=== PATIENT | male | born 1940 | race African-American/Black ===

== ENCOUNTER 2016-09-11 10:56 | Outpatient (RCR) | payer MEDICARE, OTHER | END 2016-09-18 | disposition home or self-care (01) | LOC: WCC 10:56 | DX: L89.314 Pressure ulcer of right buttock, stage 4 (principal); G82.21 Paraplegia, complete; Z87.891 Personal history of nicotine dependence; I10 Essential (primary) hypertension; E11.9 Type 2 diabetes mellitus without complications; M19.90 Unspecified osteoarthritis, unspecified site | CPT/HCPCS: 11044 ==

== ENCOUNTER 2016-10-09 10:23 | Outpatient (RCR) | payer MEDICARE, OTHER | END 2016-10-19 | disposition home or self-care (01) | LOC: WCC 10:23 | DX: L89.314 Pressure ulcer of right buttock, stage 4 (principal); G82.21 Paraplegia, complete; M19.90 Unspecified osteoarthritis, unspecified site; E11.9 Type 2 diabetes mellitus without complications; I10 Essential (primary) hypertension | CPT/HCPCS: 11043 ==

== ENCOUNTER 2016-10-09 11:16 | Outpatient (CLI) | payer MEDICARE, OTHER ==
[2016-10-09 11:44] LABS: BASOPHILS % (AUTO) 0.5 % (0.0-2.0); EOSINOPHILS % (AUTO) 3.2 % (0.0-3.0); MEAN CORPUSCULAR HEMOGLOBIN 26.1 PG (27.0-31.0); MEAN CORPUSCULAR HGB CONC 30.5 G/DL (32.0-36.0); MEAN CORPUSCULAR VOLUME 85 FL (80-99); MEAN PLATELET VOLUME 6.9 FL (6.5-10.1); MONOCYTES % (AUTO) 5.1 % (1.0-10.0); NEUTROPHILS % (AUTO) 77.2 % (45.0-75.0); PLATELET COUNT 203 K/UL (150-450); RED BLOOD COUNT 4.68 M/UL (4.70-6.10); RED CELL DISTRIBUTION WIDTH 17.1 % (11.6-14.8); WHITE BLOOD COUNT 5.3 K/UL (4.8-10.8)
[2016-10-09 11:53] LABS: INR 1.1 (0.9-1.1); PROTHROMBIN TIME 11.5 SEC (9.30-11.50)
[2016-10-09 11:59] LABS: ALANINE AMINOTRANSFERASE 10 U/L (3-41); ALBUMIN/GLOBULIN RATIO 0.8 (1.0-2.7); ANION GAP 8 (5-15); ASPARTATE AMINO TRANSFERASE 13 U/L (5-40); CALCIUM 8.4 mg/dL (8.6-10.2); CARBON DIOXIDE 27 mEQ/L (20-30); CHLORIDE 108 mEQ/L (98-107); HEMOLYSIS 0; POTASSIUM 4.1 mEQ/L (3.4-4.9); SODIUM 143 mEQ/L (135-145); TOTAL PROTEIN 7.2 g/dL (6.6-8.7)
== END 2016-10-09 13:16 | disposition home or self-care (01) ==
LOC: LAB 11:16
DX: R05 Cough (principal); E46 Unspecified protein-calorie malnutrition
CPT/HCPCS: 11043; 36415; 71020; 80053; 84134; 85025; 85610; 85730

== ENCOUNTER 2016-10-09 11:21 | Outpatient (CLI) | payer MEDICARE, OTHER ==
--- NOTE | 2016-10-09 14:45 | Diagnostic Imaging Report ---
Indication: Cough Comparison: None 2 views of the chest obtained. Findings: Cardiomediastinal silhouette and pulmonary vascularity are within normal limits for age. The diaphragmatic contour is smooth and costophrenic angles are sharp. No pleural effusions are identified. There is some mild left basal atelectasis versus scarring. The bones are unremarkable. Impression: No acute disease
== END 2016-10-09 13:21 | disposition home or self-care (01) ==
LOC: RAD 11:21
DX: R05 Cough (principal); E46 Unspecified protein-calorie malnutrition
CPT/HCPCS: 71020

== ENCOUNTER 2016-11-28 09:19 | Inpatient (IN) | payer MEDICARE, OTHER ==
[~2016-11-28] VITALS: Ht 190.5 cm; Wt 76.2 kg
[2016-11-28] VITALS (7 sets, daily range): BP systolic 113–147; BP diastolic 54–81
[2016-11-28] MEDS ORDERED: Bacitracin 50000 Units Vial ONE ×2 (10:25→14:03)
[2016-11-28] MEDS ORDERED: NeoSporin Gu Irrig 1ml Amp IRRIG ONE ×2 (10:25→14:03)
[2016-11-28] MEDS ORDERED: Lidocaine 0.5% Epi 50 mL Vial ONE (10:25)
[2016-11-28] MEDS ORDERED: INDAPAMIDE2.5 MG ORAL (10:26)
[2016-11-28] MEDS ORDERED: ASPIR 8181 MG ORAL (10:26)
[2016-11-28] MEDS ORDERED: LOVASTATIN20 MG ORAL (10:26)
[2016-11-28] MEDS ORDERED: ATENOLOL25 MG ORAL (10:26)
[2016-11-28] MEDS ORDERED: ACTOS45 MG ORAL (10:26)
[2016-11-28] MEDS ORDERED: BENAZEPRIL HCL40 MG ORAL (10:26)
[2016-11-28] MEDS ORDERED: GABAPENTIN300 MG ORAL (10:28)
[2016-11-28] MEDS ORDERED: FERROUS SULFAT325 MG ORAL (10:28)
[2016-11-28] MEDS ORDERED: FOLIC ACID1 MG ORAL (10:28)
[2016-11-28] MEDS ORDERED: NEXIUM40 MG ORAL (10:28)
[2016-11-28] MEDS ORDERED: ACETAMINOPHEN-1 EAC1 ORAL (10:28)
--- NOTE | 2016-11-28 12:44 | Pre-Procedure Note/Attestation ---
Pre-Procedure Note/Attestation Complete Prior to Procedure Planned Procedure: right Procedure Narrative: Resection of right ischial ulcer, ostectomy, with flap closure. 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 Attestation I attest that I discussed the nature of the procedure; its benefits; risks and complications; and alternatives (and the risks and benefits of such alternatives ), prior to the procedure, with the patient (or the patient's legal patient admitting representative). I attest that, if there was a reasonable possibility of needing a blood transfusion, the patient (or the patient's legal patient admitting representative) was given the [facility] standardized written summary, pursuant to the Richard Portal Blood Safety Act ([place] Health and Safety Code # 1645, as amended). I attest that I re-evaluated the patient just prior to the surgery and that there has been no change in the patient's H&P, except as documented below: SOURAV PALMER Nov 28, 2016 12:44
[2016-11-28] MEDS ORDERED: ProvayBlue 5mg/ml 10ml amp INJ ONE (13:30)
--- NOTE | 2016-11-28 13:40 | Anethesia Preoperative Eval ---
Anesthesia Pre-op PMH/ROS General Date of Evaluation: Nov 28, 2016 Time of Evaluation: 12:30 Anesthesiologist: Jewels ASA Score: ASA 2 Mallampati Score Class I : Soft palate, uvula, fauces, pillars visible Class II: Soft palate, uvula, fauces visible Class III: Soft palate, base of uvula visible Class IV: Only hard plate visible Mallampati Classification: Class II Surgeon: Elly Diagnosis: Iscial Ulcer Surgical Procedure: Debridementand Flap Closure Anesthesia History: none Family History: no anesthesia problems Allergies: Coded Allergies: SIMVASTATIN (Verified Adverse Reaction, Severe, MUSCLE WEAKNESS, 11/27/16) Medications: see eMAR Past Medical History Cardiovascular: Reports: HTN Pulmonary: Reports: COPD Anesthesia Pre-op Phys. Exam Physician Exam Last Vital Signs Date Time Temp Pulse Resp B/P (MAP) Pulse Ox O2 Delivery O2 Flow Rate FiO2 11/28/16 10:13 98.1 61 18 125/71 100 Room Air Constitutional: NAD Neurologic: CN 2-12 intact Cardiovascular: RRR Respiratory: CTA Gastrointestinal: S/NT/ND Airway Exam Mallampati Score: Class II MO: full ROM: full Teeth: intact, other Dentures: upper, lower Anesthesia Pre-op A/P Studies Pre-op Studies: CXR Risk Assessment & Plan Plan: GA Status Change Before Surgery: No Pre-Antibiotics Given Within 1 Hr of Incision: Yes Evelio Donis M.D. Nov 28, 2016 13:40
--- NOTE | 2016-11-28 13:42 | 48 Hour Post Anesthesia Eval ---
Post Anesthesia Evaluation Procedure: Debridement and Flap Closure Date of Evaluation: Nov 30, 2016 Time of Evaluation: 12:00 Blood Pressure Systolic: 131 0: 83 Pulse Rate: 81 Respiratory Rate: 16 Temperature (Fahrenheit): 97 O2 Sat by Pulse Oximetry: 99 Airway: patent Nausea: No Vomiting: No Hydration Status: adequate Mental Status/LOC: patient returned to baseline Follow-up care needed: ready to discharge Evelio Donis M.D. Nov 28, 2016 13:42
[2016-11-28] MEDS ORDERED: LR 1000ml 1,000 ML IVLG SCH (13:43)
--- NOTE | 2016-11-28 13:43 | Immediate Post-Op Evaluation ---
Immediate Post-Op Evalulation Immediate Post-Op Evalulation Procedure: Debridement and Flap Closure Date of Evaluation: Nov 28, 2016 Time of Evaluation: 16:30 IV Fluids: 1000 Blood Products: 0 Estimated Blood Loss: 30 Urinary Output: 0 Blood Pressure Systolic: 131 Blood Pressure Diastolic: 83 Pulse Rate: 99 Respiratory Rate: 18 O2 Sat by Pulse Oximetry: 99 Temperature (Fahrenheit): 98 Pain Score (1-10): 0 Nausea: No Vomiting: No Patient Status: awake, reacts, patent Hydration Status: adequate Given Within 1 Hr of Incision: Yes Time Given: 13:00 Evelio Donis M.D. Nov 28, 2016 13:43
[2016-11-28] MEDS ORDERED: Metoclopramide 10mg/2ml Inj IVP PRN (13:45)
[2016-11-28] MEDS ORDERED: DiphenhydrAMINE 50mg/ml Inj IVP PRN (13:45)
[2016-11-28] MEDS ORDERED: Ketorolac 30mg Inj IV PRN (13:45)
[2016-11-28] MEDS ORDERED: fentaNYL 100 mcg/2 mL IV PRN (13:45)
[2016-11-28] MEDS ORDERED: Hydromorphone 0.5mg/0.5ml inj IVP PRN (13:45)
[2016-11-28] MEDS ORDERED: Acetaminophen (Non formulary) 100 ML IV ONE (14:30)
--- NOTE | 2016-11-28 17:11 | Brief Operative Note ---
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 Procedure: Resection right ischial ulcer, ostectomy, closure with posterior thigh and right gluteal myocutaneous flaps. Post-op Diagnosis: same as pre-op Surgeon: Elly Anesthesiologist: Jewels Anesthesia: general Specimen: yes Complications: none Condition: stable Fluids: IVF Estimated Blood Loss: minimal Drains: NINA Implant(s) used?: No SOURAV PALMER Nov 28, 2016 17:11
[2016-11-28] MEDS ORDERED: LORazepam Inj 2mg/ml 1ml IV PRN (18:30)
[2016-11-28] MEDS ORDERED: Mylanta II UD 30ml ORAL PRN (18:30)
[2016-11-28] MEDS ORDERED: Miralax 17gm pkt ORAL PRN (18:30)
[2016-11-28] MEDS ORDERED: Zolpidem 5mg tab ORAL PRN (18:30)
[2016-11-28] MEDS: NovoLOG Insulin Flexpen SUBQ SCH (22:31)
[2016-11-29] VITALS (7 sets, daily range): BP systolic 101–132; BP diastolic 51–72
--- NOTE | 2016-11-29 01:46 | Operative Note - Dictated ---
DATE OF OPERATION: 11/28/2016 SURGEON: Isidro Sanabria M.D. ANESTHESIOLOGIST: Evelio Donis M.D. PREOPERATIVE DIAGNOSIS: Chronic nonhealing stage IV right ischial pressure ulcer. POSTOPERATIVE DIAGNOSIS: Chronic nonhealing stage IV right ischial pressure ulcer. OPERATION: Resection of right ischial pressure ulcer, ostectomy, closure of ulcer defect with right posterior thigh and right gluteal myocutaneous flaps. ANESTHESIA: General endotracheal anesthesia. OPERATIVE INDICATIONS: This is a 76-year-old male with a history of paraplegia and a 3-year history of chronic nonhealing right ischial pressure ulcer. He had osteomyelitis as well, which resolved with 6 weeks of IV antibiotics. He had his nutritional levels brought to normal with nutritional supplementation and despite these 2, he was still unable to heal the ulcer. At this point, the decision was made to take the patient to the operating room to perform excision and surgical closure. He was medically cleared for the surgery. He was scheduled for elective surgery. OPERATIVE PROCEDURE: The patient was seen in the preoperative area and the operative plan was again discussed and agreed upon. Operative marking was made. An IV was placed and he was taken back to the operating room. The patient was intubated in his hospital bed and then a Gibson catheter was placed sterilely as well as SCD on the left lower extremity given that he had a right BKA. He was then placed in the prone position on the operating bed on Gelfoam pads as well as pillows. Once all pressure points were padded and secured, his lower back, buttock, and bilateral posterior thighs were prepped and draped in the usual sterile fashion. The area to be excised was marked and a total of 20 mL of 1% lidocaine with 1:200,000 epinephrine was injected into the ulcer skin and base. Methylene blue was used to stain the inside of the ulcer and then using a #10 scalpel, an incision was made around his ulcer skin. Dissection then proceeded with electrocautery down to fully resect the ulcer, bursa, down to the ischial tuberosity. Rongeur and curettes were then used to perform an ostectomy to obtain a healthy bleeding bone. Following this, 4 liters of triple antibiotic solution was pulse lavaged into the defect. At this point, the defect was too large to be primarily close. He did have a prior history of a posterior thigh flap. This incision was remade and dissection proceeded down to the level of the biceps femoris, semimembranosus, and semitendinosus muscles. The fascia was incised to achieve more mobility and the superior aspect of the musculature at the ischial tuberosity was released to advance this over the muscle. This brought the closure to midline and so, at this point, the inferior gluteus muscle was identified and dissected to be able to be advanced inferiorly to meet the posterior thigh flap over the bone. Once enough mobilization was obtained, the deep layer was sutured together with combination of 2-0 PDS and 2-0 Vicryl sutures in a simple interrupted fashion. Following this, another layer of 2-0 Vicryl was used to close the deep subcutaneous tissue. Following this, a #15 fluted NINA drain was placed along the medial aspect of the posterior thigh incision and laid across the closure and brought out through the right lateral distal thigh and secured to the skin with a 3-0 nylon. The incisions were then closed with a combination of 2-0 Vicryl in the deep subcutaneous tissues followed by 3-0 Vicryl in the deep dermis and 3-0 PDS in a running horizontal mattress fashion at the inferior gluteal crease and then in an interlocking running fashion along the rest of the incisions. The flap looked very good with good padding and with viability at the end of the procedure. The dressings were then placed, which consisted of Adaptic, fluffs, ABDs, and foam tape and the patient was then placed on a Clinitron fluid air mattress bed and then extubated. He was then taken to the recovery room in stable condition. There were no complications. EBL was 50 mL. His urine output was approximately 600 mL. The patient is stable. The specimen will be sent to pathology for permanent section. Isidro Sanabria M.D. DR: DONNY JOB#: [id number] CC:
[2016-11-29] MEDS: NovoLOG Insulin Flexpen SUBQ SCH ×4 (06:00→20:58)
[2016-11-29 07:18] LABS: BASOPHILS % (AUTO) 0.2 % (0.0-2.0); EOSINOPHILS % (AUTO) 2.8 % (0.0-3.0); LYMPHOCYTES % (AUTO) 6.9 % (20.0-45.0); MEAN CORPUSCULAR HEMOGLOBIN 27.5 PG (27.0-31.0); MEAN CORPUSCULAR HGB CONC 32.1 G/DL (32.0-36.0); MEAN CORPUSCULAR VOLUME 86 FL (80-99); MONOCYTES % (AUTO) 5.2 % (1.0-10.0); NEUTROPHILS % (AUTO) 84.9 % (45.0-75.0); PLATELET COUNT 254 K/UL (150-450); RED BLOOD COUNT 4.37 M/UL (4.70-6.10); RED CELL DISTRIBUTION WIDTH 16.5 % (11.6-14.8); WHITE BLOOD COUNT 6.8 K/UL (4.8-10.8)
[2016-11-29 07:54] LABS: ALANINE AMINOTRANSFERASE 10 U/L (12-78); ALBUMIN/GLOBULIN RATIO 0.6 (1.0-2.7); ANION GAP 9 (5-15); ASPARTATE AMINO TRANSFERASE 16 U/L (15-37); CALCIUM 7.4 MG/DL (8.5-10.1); CARBON DIOXIDE 27 MMOL/L (21-32); CHLORIDE 102 MMOL/L (98-107); CHOLESTEROL 117 MG/DL (< 200); CHOLESTEROL/HDL RATIO 2.9 (3.3-4.4); CREATININE 1.8 MG/DL (0.55-1.30); POTASSIUM 3.7 MMOL/L (3.5-5.1); SODIUM 137 MMOL/L (136-145); TOTAL PROTEIN 6.7 G/DL (6.4-8.2)
[2016-11-29] MEDS: Atenolol 25mg tab ORAL SCH (08:11)
[2016-11-29] MEDS: Morphine Sulfate 2mg/ml Inj IVP PRN ×2 (09:29→15:50)
[2016-11-29] MEDS ORDERED: Propofol 200mg/20ml IV ONE (12:30)
[2016-11-29] MEDS ORDERED: NS Irrig 2000ml IRRIG ONE (12:30)
[2016-11-29] MEDS ORDERED: Zemuron 50mg/5ml Inj IV ONE (12:30)
[2016-11-29] MEDS ORDERED: LR 1000ml ONE (12:30)
[2016-11-29] MEDS ORDERED: Succinylcholine 20mg/ml 10ml vial ONE (12:30)
[2016-11-29] MEDS ORDERED: Metoclopramide 10mg/2ml Inj ONE (12:30)
[2016-11-29] MEDS ORDERED: Midazolam 2mg/2ml Inj ONE (12:30)
[2016-11-29] MEDS ORDERED: fentaNYL 100 mcg/2 mL IV ONE (12:30)
[2016-11-29] MEDS ORDERED: NS Irrig 1000ml ONE (12:30)
[2016-11-29] MEDS ORDERED: Morphine Sulfate 10mg/ml Inj ONE (12:30)
[2016-11-29] MEDS ORDERED: Sterile Water Irrig 1000ml IRRIG ONE (12:30)
[2016-11-29] MEDS ORDERED: Ketorolac 30mg Inj ONE (12:30)
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
[2016-11-29] MEDS: Vancomycin 1.5gm/D5W 250ml 250 ML IVPB SCH (20:56)
[2016-11-29] MEDS: Piperacillin/Tazobactam 3.375 GM in D5W 110 ML IVPB SCH (23:11)
[2016-11-30 04:00] VITALS: BP 104/47
[2016-11-30] MEDS: Piperacillin/Tazobactam 3.375 GM in D5W 110 ML IVPB SCH ×3 (05:08→22:35)
[2016-11-30] MEDS: NovoLOG Insulin Flexpen SUBQ SCH ×4 (05:33→20:46)
[2016-11-30 08:00] VITALS: BP 90/37
[2016-11-30 08:04] LABS: BASOPHILS % (AUTO) 0.5 % (0.0-2.0); EOSINOPHILS % (AUTO) 2.4 % (0.0-3.0); LYMPHOCYTES % (AUTO) 6.8 % (20.0-45.0); MEAN CORPUSCULAR HEMOGLOBIN 26.9 PG (27.0-31.0); MEAN CORPUSCULAR HGB CONC 31.6 G/DL (32.0-36.0); MEAN CORPUSCULAR VOLUME 85 FL (80-99); MEAN PLATELET VOLUME 6.7 FL (6.5-10.1); MONOCYTES % (AUTO) 6.1 % (1.0-10.0); NEUTROPHILS % (AUTO) 84.1 % (45.0-75.0); PLATELET COUNT 190 K/UL (150-450); RED BLOOD COUNT 3.82 M/UL (4.70-6.10); RED CELL DISTRIBUTION WIDTH 16.1 % (11.6-14.8); WHITE BLOOD COUNT 8.4 K/UL (4.8-10.8)
[2016-11-30 08:43] LABS: ALANINE AMINOTRANSFERASE 9 U/L (12-78); ALBUMIN/GLOBULIN RATIO 0.6 (1.0-2.7); ANION GAP 8 (5-15); ASPARTATE AMINO TRANSFERASE 14 U/L (15-37); CALCIUM 6.7 MG/DL (8.5-10.1); CARBON DIOXIDE 24 MMOL/L (21-32); CHLORIDE 104 MMOL/L (98-107); CREATININE 1.9 MG/DL (0.55-1.30); MAGNESIUM 1.5 MG/DL (1.8-2.4); PHOSPHORUS 2.8 MG/DL (2.5-4.9); POTASSIUM 3.3 MMOL/L (3.5-5.1); SODIUM 136 MMOL/L (136-145); TOTAL PROTEIN 5.9 G/DL (6.4-8.2)
[2016-11-30 08:47] LABS: CRP QUANT 16.9 mg/dL (0.00-0.90)
[2016-11-30] MEDS: Atenolol 25mg tab ORAL SCH (09:00)
[2016-11-30] MEDS: Morphine Sulfate 2mg/ml Inj IVP PRN ×4 (09:02→22:55)
[2016-11-30 09:48] LABS: ERYTHROCYTE SEDIMENTATION RATE 57 MM/HR (0-20)
[2016-11-30 12:00] VITALS: BP 137/77
--- NOTE | 2016-11-30 14:42 | Pulmonology Progress Note ---
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 HTN DM hypoalbuminemia likely severe protein calorie malnutrition anemia e/lyte imbalance ( hypo K, hypo Mg) PLAN OF CARE [facility] floor s/p surgery empiric abx wound care per surgery recommendations gentle IVF BP management with BB and BRITNEY, optimize further as needed pain management BS management with SS of insulin, check HgA1c diet as tolerated a/emetic prn replace lytes and check in am monitor count, anemia w/up turn q 2 hrs optimize nutritional status dietary eval, check prealbumin case discussed and evaluated by supervising physician Subjective Allergies: Coded Allergies: SIMVASTATIN (Verified Adverse Reaction, Severe, MUSCLE WEAKNESS, 11/27/16) Subjective afebrile, no leukocytosis pain intermittently controlled low K and Mg Objective Last 24 Hour Vital Signs Date Time Temp Pulse Resp B/P (MAP) Pulse Ox O2 Delivery O2 Flow Rate FiO2 11/30/16 12:00 98.4 79 18 137/77 96 Nasal Cannula 3.0 11/30/16 09:32 99.7 11/30/16 09:02 104/47 11/30/16 09:00 82 104/47 11/30/16 08:00 98.8 80 16 90/37 98 Nasal Cannula 2.0 11/30/16 04:00 99.7 82 20 104/47 97 Nasal Cannula 2.0 11/29/16 23:23 11/29/16 19:26 99.1 86 16 118/53 98 Room Air 11/29/16 16:00 100.4 80 16 101/54 97 Intake and Output 11/30/16 12/01/16 19:00 07:00 Output Total 900 ml Balance -900 ml Output Urine Total 900 ml General Appearance: no acute distress, other - awake, alert, bedridden AA male in NAD HEENT: normocephalic, atraumatic, anicteric, mucous membranes moist Respiratory/Chest: lungs clear - with moderate air entry , no respiratory distress, no accessory muscle use Cardiovascular: normal rate, regular rhythm Abdomen: normal bowel sounds, soft, non tender, non distended Extremities: other - R BKA Skin: other - dressing sacral area intact Neurologic/Psychiatric: abnormal gait, alert, responsive Microbiology Date/Time Source Procedure Growth Status 11/28/16 10:05 Nasal Nares MRSA Culture - Final NO METHICILLIN RESISTANT STAPH AUREUS... Complete Laboratory Tests 11/30/16 07:35: White Blood Count 8.4, Red Blood Count 3.82L, Hemoglobin 10.3L, Hematocrit 32.5L , Mean Corpuscular Volume 85, Mean Corpuscular Hemoglobin 26.9L, Mean Corpuscular Hemoglobin Concent 31.6L, Red Cell Distribution Width 16.1H, Platelet Count 190, Mean Platelet Volume 6.7, Neutrophils (%) (Auto) 84.1H, Lymphocytes (%) (Auto) 6.8L, Monocytes (%) (Auto) 6.1, Eosinophils (%) (Auto) 2.4, Basophils (%) (Auto) 0.5, Erythrocyte Sedimentation Rate 57H, Sodium Level 136, Potassium Level 3.3L, Chloride Level 104, Carbon Dioxide Level 24, Anion Gap 8, Blood Urea Nitrogen 26H, Creatinine 1.9H, Estimat Glomerular Filtration Rate , Glucose Level 110H, Calcium Level 6.7L, Phosphorus Level 2.8, Magnesium Level 1.5L, Total Bilirubin 0.4, Aspartate Amino Transf (AST/SGOT) 14L, Alanine Aminotransferase (ALT/SGPT) 9L, Alkaline Phosphatase 90, C-Reactive Protein, Quantitative 16.9H, Total Protein 5.9L, Albumin 2.1L, Globulin 3.8, Albumin/ Globulin Ratio 0.6L Current Medications Medications (Trade) Dose Ordered Sig/Venkata Route PRN Reason Start Time Stop Time Status Last Admin Dose Admin Acetaminophen (Tylenol) 650 mg Q4H PRN ORAL fever 11/28/16 18:30 12/28/16 18:29 Al Hydroxide/Mg Hydroxide (Mylanta II) 30 ml Q6H PRN ORAL dyspepsia 11/28/16 18:30 12/28/16 18:29 Atenolol (Tenormin) 25 mg DAILY ORAL 11/29/16 09:00 12/29/16 08:59 Benazepril HCl (Lotensin) 40 mg DAILY ORAL 11/29/16 09:00 12/29/16 08:59 11/30/16 09:02 Dextrose (Dextrose 50%) STAT PRN IV Hypoglycemia 11/28/16 18:30 12/28/16 18:29 Gabapentin (Neurontin) 300 mg BEDTIME ORAL 11/28/16 21:00 12/28/16 20:59 11/29/16 20:56 Insulin Aspart (NovoLOG) BEFORE MEALS AND HS SUBQ 11/28/16 21:00 12/28/16 20:59 11/30/16 12:32 Lorazepam (Ativan 2mg/ml 1ml) 0.5 mg Q4H PRN IV For Anxiety 11/28/16 18:30 12/05/16 18:29 Morphine Sulfate (Morphine Sulfate) 1 mg Q4H PRN IVP For Pain 4-10 11/28/16 18:30 12/05/16 18:29 11/30/16 13:50 Ondansetron HCl (Zofran) 4 mg Q6H PRN IVP Nausea & Vomiting 11/28/16 18:30 12/28/16 18:29 11/28/16 20:34 Piperacillin Sod/ Tazobactam Sod 3.375 gm/Dextrose 110 ml @ 27.5 mls/hr Q8HR IVPB 11/29/16 22:00 12/06/16 21:59 11/30/16 13:45 Polyethylene Glycol (Miralax) 17 gm HSPRN PRN ORAL Constipation 11/28/16 18:30 12/28/16 18:29 Sodium Chloride 1,000 ml @ 50 mls/hr Q20H IV 11/28/16 21:30 12/28/16 21:29 11/30/16 13:44 Vancomycin HCl (Vanco rx to dose) 1 ea DAILYPRN PRN MISC Per rx protocol 11/29/16 18:45 12/29/16 18:44 Vancomycin HCl/ Dextrose 250 ml @ 125 mls/hr Q24H IVPB 11/29/16 20:00 12/04/16 19:59 11/29/16 20:56 Zolpidem Tartrate (Ambien) 5 mg HSPRN PRN ORAL Insomnia 11/28/16 18:30 12/05/16 18:29 Sarah Zuleta NP (Vanchtein) Nov 30, 2016 14:42
[2016-11-30 16:00] VITALS: BP 103/53
[2016-11-30] MEDS: Vancomycin 1.5gm/D5W 250ml 250 ML IVPB SCH (19:50)
[2016-11-30 19:52] VITALS: BP 115/52
[2016-12-01] VITALS: BP 143/54
[2016-12-01 04:00] VITALS: BP 104/46
[2016-12-01] MEDS: Piperacillin/Tazobactam 3.375 GM in D5W 110 ML IVPB SCH ×3 (05:05→23:13)
[2016-12-01] MEDS: NovoLOG Insulin Flexpen SUBQ SCH ×4 (05:36→20:58)
[2016-12-01] MEDS: Morphine Sulfate 2mg/ml Inj IVP PRN ×3 (08:21→23:15)
[2016-12-01] MEDS: Atenolol 25mg tab ORAL SCH (08:21)
--- NOTE | 2016-12-01 08:41 | Pulmonology Progress Note ---
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 HTN DM hypoalbuminemia likely severe protein calorie malnutrition anemia e/lyte imbalance ( hypo K, hypo Mg) functional quadriplegia PLAN OF CARE [facility] floor s/p surgery empiric abx wound care per surgery recommendations gentle IVF BP management with BB and BRITNEY, optimize further as needed pain management BS management with SS of insulin, check HgA1c diet as tolerated a/emetic prn lytes stable after replacement monitor count, anemia w/up turn q 2 hrs optimize nutritional status dietary eval, check prealbumin case discussed and evaluated by supervising physician Subjective Allergies: Coded Allergies: SIMVASTATIN (Verified Adverse Reaction, Severe, MUSCLE WEAKNESS, 11/27/16) Subjective afebrile, no leukocytosis pain intermittently controlled Objective Last 24 Hour Vital Signs Date Time Temp Pulse Resp B/P (MAP) Pulse Ox O2 Delivery O2 Flow Rate FiO2 12/01/16 08:21 104/46 12/01/16 08:21 81 104/46 12/01/16 04:00 98.1 81 20 104/46 99 Room Air 12/01/16 04:00 Room Air 12/01/16 00:00 98.0 77 20 143/54 98 Nasal Cannula 2.0 11/30/16 19:52 99.1 77 20 115/52 98 Nasal Cannula 2.0 11/30/16 19:13 98.2 11/30/16 16:00 98.2 80 16 103/53 100 Nasal Cannula 3.0 11/30/16 12:00 98.4 79 18 137/77 96 Nasal Cannula 3.0 11/30/16 09:02 104/47 11/30/16 09:00 82 104/47 Intake and Output 12/01/16 12/02/16 19:00 07:00 Intake Total 27.5 ml Balance 27.5 ml IV Total 27.5 ml Objective General Appearance: no acute distress, other - awake, alert, bedridden AA male in NAD HEENT: normocephalic, atraumatic, anicteric, mucous membranes moist Respiratory/Chest: lungs clear - with moderate air entry , no respiratory distress, no accessory muscle use Cardiovascular: normal rate, regular rhythm Abdomen: normal bowel sounds, soft, non tender, non distended Extremities: other - R BKA Skin: other - dressing sacral area intact Neurologic/Psychiatric: abnormal gait/bedridden, alert, responsive Microbiology Date/Time Source Procedure Growth Status 11/28/16 10:05 Nasal Nares MRSA Culture - Final NO METHICILLIN RESISTANT STAPH AUREUS... Complete Current Medications Medications (Trade) Dose Ordered Sig/Venkata Route PRN Reason Start Time Stop Time Status Last Admin Dose Admin Acetaminophen (Tylenol) 650 mg Q4H PRN ORAL fever 11/28/16 18:30 12/28/16 18:29 Al Hydroxide/Mg Hydroxide (Mylanta II) 30 ml Q6H PRN ORAL dyspepsia 11/28/16 18:30 12/28/16 18:29 Atenolol (Tenormin) 25 mg DAILY ORAL 11/29/16 09:00 12/29/16 08:59 Benazepril HCl (Lotensin) 40 mg DAILY ORAL 11/29/16 09:00 12/29/16 08:59 12/01/16 08:21 Dextrose (Dextrose 50%) STAT PRN IV Hypoglycemia 11/28/16 18:30 12/28/16 18:29 Gabapentin (Neurontin) 300 mg BEDTIME ORAL 11/28/16 21:00 12/28/16 20:59 11/30/16 20:45 Insulin Aspart (NovoLOG) BEFORE MEALS AND HS SUBQ 11/28/16 21:00 12/28/16 20:59 11/30/16 20:46 Lorazepam (Ativan 2mg/ml 1ml) 0.5 mg Q4H PRN IV For Anxiety 11/28/16 18:30 12/05/16 18:29 Morphine Sulfate (Morphine Sulfate) 1 mg Q4H PRN IVP For Pain 4-10 11/28/16 18:30 12/05/16 18:29 12/01/16 08:21 Ondansetron HCl (Zofran) 4 mg Q6H PRN IVP Nausea & Vomiting 11/28/16 18:30 12/28/16 18:29 11/28/16 20:34 Piperacillin Sod/ Tazobactam Sod 3.375 gm/Dextrose 110 ml @ 27.5 mls/hr Q8HR IVPB 11/29/16 22:00 12/06/16 21:59 12/01/16 05:05 Polyethylene Glycol (Miralax) 17 gm HSPRN PRN ORAL Constipation 11/28/16 18:30 12/28/16 18:29 Sodium Chloride 1,000 ml @ 50 mls/hr Q20H IV 11/28/16 21:30 12/28/16 21:29 11/30/16 13:44 Vancomycin HCl (Vanco rx to dose) 1 ea DAILYPRN PRN MISC Per rx protocol 11/29/16 18:45 12/29/16 18:44 Vancomycin HCl/ Dextrose 250 ml @ 125 mls/hr Q24H IVPB 11/29/16 20:00 12/04/16 19:59 11/30/16 19:50 Zolpidem Tartrate (Ambien) 5 mg HSPRN PRN ORAL Insomnia 11/28/16 18:30 12/05/16 18:29 Song (Francis)Sarah NP Dec 01, 2016 08:41
[2016-12-01 09:00] VITALS: BP 104/46
[2016-12-01 09:28] LABS: MEAN CORPUSCULAR HEMOGLOBIN 26.5 PG (27.0-31.0); MEAN CORPUSCULAR HGB CONC 30.9 G/DL (32.0-36.0); MEAN CORPUSCULAR VOLUME 86 FL (80-99); MEAN PLATELET VOLUME 6.9 FL (6.5-10.1); PLATELET COUNT 194 K/UL (150-450); RED BLOOD COUNT 3.79 M/UL (4.70-6.10); RED CELL DISTRIBUTION WIDTH 16.3 % (11.6-14.8); WHITE BLOOD COUNT 8.6 K/UL (4.8-10.8)
[2016-12-01 09:47] LABS: IRON 23 ug/dL (50-175); TOTAL IRON BINDING CAPACITY 110 ug/dL (250-450)
[2016-12-01 09:49] LABS: HEMOGLOBIN A1C 7.9 % (4.3-6.0)
[2016-12-01 10:34] LABS: BAND NEUTROPHILS % (MANUAL) 0 % (0-8); BASOPHILS % (MANUAL) 0 % (0-2); EOSINOPHILS % (MANUAL) 2 % (0-3); LYMPHOCYTES % (MANUAL) 7 % (20-45); NEUTROPHILS % (MANUAL) 89 % (45-75); PLATELET ESTIMATE ADEQUATE; PLATELET MORPHOLOGY NORMAL; TOTAL CELLS COUNTED 100
[2016-12-01 10:53] LABS: FOLIC ACID 9.6 NG/ML (3.1-17.5)
[2016-12-01 11:27] LABS: ANION GAP 9 (5-15); CALCIUM 7.2 MG/DL (8.5-10.1); CARBON DIOXIDE 26 MMOL/L (21-32); CHLORIDE 98 MMOL/L (98-107); CREATININE 1.9 MG/DL (0.55-1.30); MAGNESIUM 1.9 MG/DL (1.8-2.4); POTASSIUM 3.5 MMOL/L (3.5-5.1); SODIUM 133 MMOL/L (136-145)
[2016-12-01 11:30] LABS: FERRITIN 1511 NG/ML (8-388)
[2016-12-01 11:53] VITALS: BP 94/51
--- NOTE | 2016-12-01 13:45 | General Progress Note ---
Assessment/Plan Status: doing well Assessment/Plan Doing well. Continue clinitron bed. Will D/c NINA on 12/04/16. All questions answered. Subjective Date patient seen: Dec 01, 2016 Time patient seen: 13:41 Allergies: Coded Allergies: SIMVASTATIN (Verified Adverse Reaction, Severe, MUSCLE WEAKNESS, 11/27/16) Subjective Patient is POD#3 s/p flap closure right ischial ulcer. He is doing well. Objective Last 24 Hour Vital Signs Date Time Temp Pulse Resp B/P (MAP) Pulse Ox O2 Delivery O2 Flow Rate FiO2 12/01/16 11:53 98.2 62 20 94/51 97 Nasal Cannula 2.0 12/01/16 09:00 97.7 74 20 104/46 98 Nasal Cannula 2.0 12/01/16 08:51 98.1 12/01/16 08:21 104/46 12/01/16 08:21 81 104/46 12/01/16 04:00 98.1 81 20 104/46 99 Room Air 12/01/16 04:00 Room Air 12/01/16 00:00 98.0 77 20 143/54 98 Nasal Cannula 2.0 11/30/16 19:52 99.1 77 20 115/52 98 Nasal Cannula 2.0 11/30/16 16:00 98.2 80 16 103/53 100 Nasal Cannula 3.0 Intake and Output 12/01/16 12/02/16 19:00 07:00 Intake Total 27.5 ml Balance 27.5 ml IV Total 27.5 ml Laboratory Tests 12/01/16 08:20: White Blood Count 8.6, Red Blood Count 3.79L, Hemoglobin 10.1L, Hematocrit 32.6L , Mean Corpuscular Volume 86, Mean Corpuscular Hemoglobin 26.5L, Mean Corpuscular Hemoglobin Concent 30.9L, Red Cell Distribution Width 16.3H, Platelet Count 194, Mean Platelet Volume 6.9, Neutrophils (%) (Auto) , Lymphocytes (%) (Auto) , Monocytes (%) (Auto) , Eosinophils (%) (Auto) , Basophils (%) (Auto) , Differential Total Cells Counted 100, Neutrophils % ( Manual) 89H, Lymphocytes % (Manual) 7L, Monocytes % (Manual) 2, Eosinophils % ( Manual) 2, Basophils % (Manual) 0, Band Neutrophils 0, Platelet Estimate Adequate, Platelet Morphology Normal, Sodium Level 133L, Potassium Level 3.5, Chloride Level 98, Carbon Dioxide Level 26, Anion Gap 9, Blood Urea Nitrogen 22H , Creatinine 1.9H, Estimat Glomerular Filtration Rate , Glucose Level 236#H, Hemoglobin A1c 7.9H, Calcium Level 7.2L, Magnesium Level 1.9, Iron Level 23L, Total Iron Binding Capacity 110L, Percent Iron Saturation 21, Unsaturated Iron Binding 87L, Ferritin 1511H, Prealbumin [Pending], Vitamin B12 Level 231, Folate 9.6 Height (Feet): 6 Height (Inches): 3.00 Weight (Pounds): 168 General Appearance: WD/WN, no apparent distress Skin: other - Flap is healing well. Incisons C/D/I. NINA is serous. SOURAV PALMER Dec 01, 2016 13:45
[2016-12-01 16:02] VITALS: BP 105/58
[2016-12-01 19:50] VITALS: BP 118/59
[2016-12-01] MEDS ORDERED: Vancomycin 1250mg/D5W 250ml 250 ML IVPB SCH (20:30)
[2016-12-02] VITALS: BP 114/53
[2016-12-02] MEDS: Vancomycin 1gm in D5W 275ml IVPB SCH ×2 (01:08→20:28)
[2016-12-02 04:00] VITALS: BP 104/59
[2016-12-02] MEDS: Piperacillin/Tazobactam 3.375 GM in D5W 110 ML IVPB SCH ×3 (05:22→22:47)
[2016-12-02] MEDS: NovoLOG Insulin Flexpen SUBQ SCH ×4 (06:27→20:51)
[2016-12-02] MEDS: Morphine Sulfate 2mg/ml Inj IVP PRN ×4 (07:42→20:28)
[2016-12-02 08:15] VITALS: BP 103/55
[2016-12-02 08:45] LABS: BASOPHILS % (AUTO) 0.5 % (0.0-2.0); EOSINOPHILS % (AUTO) 3.9 % (0.0-3.0); LYMPHOCYTES % (AUTO) 12.1 % (20.0-45.0); MEAN CORPUSCULAR HEMOGLOBIN 25.7 PG (27.0-31.0); MEAN CORPUSCULAR HGB CONC 30.2 G/DL (32.0-36.0); MEAN CORPUSCULAR VOLUME 85 FL (80-99); MEAN PLATELET VOLUME 7.1 FL (6.5-10.1); MONOCYTES % (AUTO) 4.9 % (1.0-10.0); NEUTROPHILS % (AUTO) 78.6 % (45.0-75.0); PLATELET COUNT 218 K/UL (150-450); RED CELL DISTRIBUTION WIDTH 16.2 % (11.6-14.8); WHITE BLOOD COUNT 7.4 K/UL (4.8-10.8)
[2016-12-02] MEDS: Atenolol 25mg tab ORAL SCH (09:00)
[2016-12-02 09:09] LABS: ANION GAP 7 (5-15); CALCIUM 8.1 MG/DL (8.5-10.1); CARBON DIOXIDE 27 MMOL/L (21-32); CHLORIDE 102 MMOL/L (98-107); CREATININE 1.7 MG/DL (0.55-1.30); POTASSIUM 4.2 MMOL/L (3.5-5.1); SODIUM 136 MMOL/L (136-145)
--- NOTE | 2016-12-02 10:03 | Pulmonology Progress Note ---
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 HTN DM hypoalbuminemia likely severe protein calorie malnutrition anemia e/lyte imbalance ( hypo K, hypo Mg) functional quadriplegia PLAN OF CARE [facility] floor s/p surgery empiric abx wound care per surgery recommendations gentle IVF BP management with BB and BRITNEY, optimize further as needed pain management BS management with SS of insulin, check HgA1c diet as tolerated a/emetic prn lytes stable after replacement monitor count, anemia w/up turn q 2 hrs optimize nutritional status dietary eval prealbumin pending case discussed and evaluated by supervising physician Subjective Allergies: Coded Allergies: SIMVASTATIN (Verified Adverse Reaction, Severe, MUSCLE WEAKNESS, 11/27/16) Subjective afebrile, no leukocytosis pain intermittently controlled Objective Last 24 Hour Vital Signs Date Time Temp Pulse Resp B/P (MAP) Pulse Ox O2 Delivery O2 Flow Rate FiO2 12/02/16 09:00 103/55 12/02/16 09:00 81 103/55 12/02/16 04:00 98.1 78 20 104/59 100 Nasal Cannula 2.0 12/02/16 00:00 98.2 73 20 114/53 100 Room Air 12/01/16 19:50 97.9 77 18 118/59 99 Room Air 12/01/16 16:02 98.0 79 20 105/58 99 Nasal Cannula 2.0 12/01/16 15:59 98.2 12/01/16 11:53 98.2 62 20 94/51 97 Nasal Cannula 2.0 Intake and Output 12/02/16 12/03/16 19:00 07:00 Intake Total 50 ml Balance 50 ml IV Total 50 ml Objective General Appearance: no acute distress, other - awake, alert, bedridden AA male in NAD HEENT: normocephalic, atraumatic, anicteric, mucous membranes moist Respiratory/Chest: lungs clear - with moderate air entry , no respiratory distress, no accessory muscle use Cardiovascular: normal rate, regular rhythm Abdomen: normal bowel sounds, soft, non tender, non distended Extremities: other - R BKA Skin: other - dressing sacral area intact Neurologic/Psychiatric: abnormal gait/bedridden, alert, responsive Laboratory Tests 12/01/16 18:40: Random Vancomycin Level 14.7 12/02/16 06:27: White Blood Count 7.4, Red Blood Count 4.00L, Hemoglobin 10.3L, Hematocrit 34.1L , Mean Corpuscular Volume 85, Mean Corpuscular Hemoglobin 25.7L, Mean Corpuscular Hemoglobin Concent 30.2L, Red Cell Distribution Width 16.2H, Platelet Count 218, Mean Platelet Volume 7.1, Neutrophils (%) (Auto) 78.6H, Lymphocytes (%) (Auto) 12.1L, Monocytes (%) (Auto) 4.9, Eosinophils (%) (Auto) 3.9H, Basophils (%) (Auto) 0.5, Sodium Level 136, Potassium Level 4.2, Chloride Level 102, Carbon Dioxide Level 27, Anion Gap 7, Blood Urea Nitrogen 18, Creatinine 1.7H, Estimat Glomerular Filtration Rate , Glucose Level 91#, Calcium Level 8.1L Current Medications Medications (Trade) Dose Ordered Sig/Venkata Route PRN Reason Start Time Stop Time Status Last Admin Dose Admin Acetaminophen (Tylenol) 650 mg Q4H PRN ORAL fever 11/28/16 18:30 12/28/16 18:29 Al Hydroxide/Mg Hydroxide (Mylanta II) 30 ml Q6H PRN ORAL dyspepsia 11/28/16 18:30 12/28/16 18:29 Atenolol (Tenormin) 25 mg DAILY ORAL 11/29/16 09:00 12/29/16 08:59 Benazepril HCl (Lotensin) 40 mg DAILY ORAL 11/29/16 09:00 12/29/16 08:59 12/01/16 08:21 Dextrose (Dextrose 50%) STAT PRN IV Hypoglycemia 11/28/16 18:30 12/28/16 18:29 Gabapentin (Neurontin) 300 mg BEDTIME ORAL 11/28/16 21:00 12/28/16 20:59 12/01/16 20:56 Insulin Aspart (NovoLOG) BEFORE MEALS AND HS SUBQ 11/28/16 21:00 12/28/16 20:59 12/02/16 06:27 Lorazepam (Ativan 2mg/ml 1ml) 0.5 mg Q4H PRN IV For Anxiety 11/28/16 18:30 12/05/16 18:29 Morphine Sulfate (Morphine Sulfate) 1 mg Q4H PRN IVP For Pain 4-10 11/28/16 18:30 12/05/16 18:29 12/02/16 07:42 Ondansetron HCl (Zofran) 4 mg Q6H PRN IVP Nausea & Vomiting 11/28/16 18:30 12/28/16 18:29 11/28/16 20:34 Piperacillin Sod/ Tazobactam Sod 3.375 gm/Dextrose 110 ml @ 27.5 mls/hr Q8HR IVPB 11/29/16 22:00 12/06/16 21:59 12/02/16 05:22 Polyethylene Glycol (Miralax) 17 gm HSPRN PRN ORAL Constipation 11/28/16 18:30 12/28/16 18:29 Sodium Chloride 1,000 ml @ 50 mls/hr Q20H IV 11/28/16 21:30 12/28/16 21:29 12/02/16 05:21 Vancomycin HCl (Vanco rx to dose) 1 ea DAILYPRN PRN MISC Per rx protocol 11/29/16 18:45 12/29/16 18:44 Vancomycin HCl 1 gm/Dextrose 275 ml @ 183.708 mls/hr Q24H IVPB 12/01/16 22:00 12/06/16 21:59 12/02/16 01:08 Zolpidem Tartrate (Ambien) 5 mg HSPRN PRN ORAL Insomnia 11/28/16 18:30 12/05/16 18:29 Sarah Zuleta NP (Vanchtein) Dec 02, 2016 10:03
[2016-12-02 12:15] VITALS: BP 121/59
[2016-12-02 16:00] VITALS: BP 117/58
[2016-12-02] MEDS ORDERED: 1/2 NS 1000ml IV ONE (18:26)
[2016-12-02] MEDS ORDERED: Tubing IV Secondary IV ONE (18:26)
[2016-12-02 20:00] VITALS: BP 102/65
[2016-12-03] VITALS: BP 134/64
[2016-12-03] MEDS: Morphine Sulfate 2mg/ml Inj IVP PRN ×5 (00:47→20:26)
[2016-12-03 04:00] VITALS: BP 116/61
[2016-12-03] MEDS: Piperacillin/Tazobactam 3.375 GM in D5W 110 ML IVPB SCH ×3 (05:46→23:47)
[2016-12-03] MEDS: NovoLOG Insulin Flexpen SUBQ SCH ×4 (06:00→20:25)
[2016-12-03 08:00] VITALS: BP 119/59
[2016-12-03] MEDS: Atenolol 25mg tab ORAL SCH (09:00)
[2016-12-03 12:00] VITALS: BP 122/63
--- NOTE | 2016-12-03 14:09 | Pulmonology Progress Note ---
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 HTN DM hypoalbuminemia likely severe protein calorie malnutrition anemia e/lyte imbalance ( hypo K, hypo Mg) functional quadriplegia PLAN OF CARE [facility] floor s/p surgery empiric abx wound care per surgery recommendations gentle IVF BP management with BB and BRITNEY, optimize further as needed pain management BS management with SS of insulin, check HgA1c diet as tolerated a/emetic prn lytes stable after replacement monitor count, anemia w/up turn q 2 hrs optimize nutritional status dietary eval noted, high protein snacks added prealbumin -10, however muscekl wasting and cachexia suggestive of protein calorie malnutrition dc plan for am case discussed and evaluated by supervising physician Subjective Allergies: Coded Allergies: SIMVASTATIN (Verified Adverse Reaction, Severe, MUSCLE WEAKNESS, 11/27/16) Subjective afebrile, no leukocytosis pain intermittently controlled comfortable Objective Last 24 Hour Vital Signs Date Time Temp Pulse Resp B/P (MAP) Pulse Ox O2 Delivery O2 Flow Rate FiO2 12/03/16 12:00 98.0 76 20 122/63 98 Nasal Cannula 3.0 12/03/16 09:00 112/56 12/03/16 09:00 78 112/56 12/03/16 08:00 97.9 79 20 119/59 97 Nasal Cannula 3.0 12/03/16 04:00 98.2 75 21 116/61 96 Nasal Cannula 2.0 12/03/16 00:00 98.4 71 20 134/64 99 Nasal Cannula 12/02/16 20:00 98.4 81 21 102/65 97 Nasal Cannula 2.0 12/02/16 16:00 98.0 77 18 117/58 100 Room Air Intake and Output 12/03/16 12/04/16 19:00 07:00 Intake Total 150 ml Balance 150 ml IV Total 150 ml Objective General Appearance: no acute distress, other - awake, alert, bedridden AA male in NAD HEENT: normocephalic, atraumatic, anicteric, mucous membranes moist Respiratory/Chest: lungs clear - with moderate air entry , no respiratory distress, no accessory muscle use Cardiovascular: normal rate, regular rhythm Abdomen: normal bowel sounds, soft, non tender, non distended Extremities: other - R BKA Skin: other - dressing sacral area intact Neurologic/Psychiatric: abnormal gait/bedridden, alert, responsive Current Medications Medications (Trade) Dose Ordered Sig/Venkata Route PRN Reason Start Time Stop Time Status Last Admin Dose Admin Acetaminophen (Tylenol) 650 mg Q4H PRN ORAL fever 11/28/16 18:30 12/28/16 18:29 Al Hydroxide/Mg Hydroxide (Mylanta II) 30 ml Q6H PRN ORAL dyspepsia 11/28/16 18:30 12/28/16 18:29 Atenolol (Tenormin) 25 mg DAILY ORAL 11/29/16 09:00 12/29/16 08:59 Benazepril HCl (Lotensin) 40 mg DAILY ORAL 11/29/16 09:00 12/29/16 08:59 12/01/16 08:21 Dextrose (Dextrose 50%) STAT PRN IV Hypoglycemia 11/28/16 18:30 12/28/16 18:29 Gabapentin (Neurontin) 300 mg BEDTIME ORAL 11/28/16 21:00 12/28/16 20:59 12/02/16 20:27 Insulin Aspart (NovoLOG) BEFORE MEALS AND HS SUBQ 11/28/16 21:00 12/28/16 20:59 12/02/16 20:51 Lorazepam (Ativan 2mg/ml 1ml) 0.5 mg Q4H PRN IV For Anxiety 11/28/16 18:30 12/05/16 18:29 Morphine Sulfate (Morphine Sulfate) 1 mg Q4H PRN IVP For Pain 4-10 11/28/16 18:30 12/05/16 18:29 12/03/16 12:05 Ondansetron HCl (Zofran) 4 mg Q6H PRN IVP Nausea & Vomiting 11/28/16 18:30 12/28/16 18:29 11/28/16 20:34 Piperacillin Sod/ Tazobactam Sod 3.375 gm/Dextrose 110 ml @ 27.5 mls/hr Q8HR IVPB 11/29/16 22:00 12/06/16 21:59 12/03/16 05:46 Polyethylene Glycol (Miralax) 17 gm HSPRN PRN ORAL Constipation 11/28/16 18:30 12/28/16 18:29 Sodium Chloride 1,000 ml @ 50 mls/hr Q20H IV 11/28/16 21:30 12/28/16 21:29 12/03/16 00:42 Vancomycin HCl (Vanco rx to dose) 1 ea DAILYPRN PRN MISC Per rx protocol 11/29/16 18:45 12/29/16 18:44 Vancomycin HCl 1 gm/Dextrose 275 ml @ 183.708 mls/hr Q24H IVPB 12/01/16 22:00 12/06/16 21:59 12/02/16 20:28 Zolpidem Tartrate (Ambien) 5 mg HSPRN PRN ORAL Insomnia 11/28/16 18:30 12/05/16 18:29 Song (Sarah Ashford NP Dec 03, 2016 14:09
[2016-12-03] MEDS ORDERED: 1/2 NS 1000ml IV ONE (15:31)
[2016-12-03 15:41] VITALS: BP 120/73
[2016-12-03 20:00] VITALS: BP 119/60
[2016-12-03] MEDS: Vancomycin 1gm in D5W 275ml IVPB SCH (21:47)
[2016-12-04] VITALS: BP 115/60
[2016-12-04 04:00] VITALS: BP 108/55
[2016-12-04] MEDS: Piperacillin/Tazobactam 3.375 GM in D5W 110 ML IVPB SCH ×3 (05:26→23:02)
[2016-12-04] MEDS: NovoLOG Insulin Flexpen SUBQ SCH ×4 (06:21→21:12)
[2016-12-04] MEDS: Morphine Sulfate 2mg/ml Inj IVP PRN ×4 (07:39→21:17)
[2016-12-04 08:00] VITALS: BP 110/60
[2016-12-04] MEDS: Atenolol 25mg tab ORAL SCH (08:48)
--- NOTE | 2016-12-04 08:57 | Plastic Surgery Progress Note ---
Plastic Surgery-Progress Note Subjective Day of Surgery: 11/29/16 Procedure Performed Resection right ischial ulcer, ostectomy, closure with posterior thigh and right gluteal myocutaneous flaps. Symptoms: improved Additional Comments Patient is POD#6 s/p surgery. He is doing well with no complaints. NINA output has diminished significantly. Objective Last 24 Hour Vital Signs Date Time Temp Pulse Resp B/P (MAP) Pulse Ox O2 Delivery O2 Flow Rate FiO2 12/04/16 08:48 110/60 12/04/16 08:48 84 110/60 12/04/16 04:00 98.0 75 21 108/55 96 Room Air 12/04/16 00:00 97.5 72 20 115/60 99 Room Air 12/03/16 20:00 98.2 73 20 119/60 98 Room Air 12/03/16 15:41 98.4 72 21 120/73 95 Room Air 12/03/16 12:00 98.0 76 20 122/63 98 Nasal Cannula 3.0 12/03/16 09:00 112/56 12/03/16 09:00 78 112/56 Dressing: dry Drains: other - NINA scant serous output Skin Exam: normal inspection, normal color, other - Flap healing well with intact suture line. Plan Additional Comments Doing well POD#6. NINA drain removed. Wean nasal cannula as tolerated. Discharge planning to SNF on clinitron bed later this week. SOURAV PALMER Dec 04, 2016 08:57
[2016-12-04 12:00] VITALS: BP 116/58
--- NOTE | 2016-12-04 15:10 | Pulmonology Progress Note ---
Assessment/Plan Problems: (1) Decubital ulcer (2) Hypertension (3) Diabetes mellitus (4) Pressure ulcer of right ischium Assessment/Plan wound care sliding sclae diabetic diet dvt prophylaxis dc planning Subjective ROS Limited/Unobtainable: No Constitutional: Reports: no symptoms Allergies: Coded Allergies: SIMVASTATIN (Verified Adverse Reaction, Severe, MUSCLE WEAKNESS, 11/27/16) Objective Last 24 Hour Vital Signs Date Time Temp Pulse Resp B/P (MAP) Pulse Ox O2 Delivery O2 Flow Rate FiO2 12/04/16 12:00 98.1 67 18 116/58 98 Room Air 12/04/16 08:48 110/60 12/04/16 08:48 84 110/60 12/04/16 08:00 98.2 84 15 110/60 96 Nasal Cannula 2.0 12/04/16 04:00 98.0 75 21 108/55 96 Room Air 12/04/16 00:00 97.5 72 20 115/60 99 Room Air 12/03/16 20:00 98.2 73 20 119/60 98 Room Air 12/03/16 15:41 98.4 72 21 120/73 95 Room Air General Appearance: WD/WN HEENT: normocephalic, atraumatic Respiratory/Chest: chest wall non-tender, lungs clear Cardiovascular: normal peripheral pulses, normal rate Abdomen: normal bowel sounds, soft, non tender Genitourinary: normal external genitalia Skin: no lesions Current Medications Medications (Trade) Dose Ordered Sig/Venkata Route PRN Reason Start Time Stop Time Status Last Admin Dose Admin Acetaminophen (Tylenol) 650 mg Q4H PRN ORAL fever 11/28/16 18:30 12/28/16 18:29 Al Hydroxide/Mg Hydroxide (Mylanta II) 30 ml Q6H PRN ORAL dyspepsia 11/28/16 18:30 12/28/16 18:29 Atenolol (Tenormin) 25 mg DAILY ORAL 11/29/16 09:00 12/29/16 08:59 Benazepril HCl (Lotensin) 40 mg DAILY ORAL 11/29/16 09:00 12/29/16 08:59 12/01/16 08:21 Dextrose (Dextrose 50%) STAT PRN IV Hypoglycemia 11/28/16 18:30 12/28/16 18:29 Gabapentin (Neurontin) 300 mg BEDTIME ORAL 11/28/16 21:00 12/28/16 20:59 12/03/16 20:24 Insulin Aspart (NovoLOG) BEFORE MEALS AND HS SUBQ 11/28/16 21:00 12/28/16 20:59 12/04/16 12:10 Lorazepam (Ativan 2mg/ml 1ml) 0.5 mg Q4H PRN IV For Anxiety 11/28/16 18:30 12/05/16 18:29 Morphine Sulfate (Morphine Sulfate) 1 mg Q4H PRN IVP For Pain 4-10 11/28/16 18:30 12/05/16 18:29 12/04/16 12:09 Ondansetron HCl (Zofran) 4 mg Q6H PRN IVP Nausea & Vomiting 11/28/16 18:30 12/28/16 18:29 11/28/16 20:34 Piperacillin Sod/ Tazobactam Sod 3.375 gm/Dextrose 110 ml @ 27.5 mls/hr Q8HR IVPB 11/29/16 22:00 12/06/16 21:59 12/04/16 14:43 Polyethylene Glycol (Miralax) 17 gm HSPRN PRN ORAL Constipation 11/28/16 18:30 12/28/16 18:29 Sodium Chloride 1,000 ml @ 50 mls/hr Q20H IV 11/28/16 21:30 12/28/16 21:29 12/03/16 00:42 Vancomycin HCl (Vanco rx to dose) 1 ea DAILYPRN PRN MISC Per rx protocol 11/29/16 18:45 12/29/16 18:44 Vancomycin HCl 1 gm/Dextrose 275 ml @ 183.708 mls/hr Q24H IVPB 12/01/16 22:00 12/06/16 21:59 12/03/16 21:47 Zolpidem Tartrate (Ambien) 5 mg HSPRN PRN ORAL Insomnia 11/28/16 18:30 12/05/16 18:29 RADHA HERRMANN Dec 04, 2016 15:10
[2016-12-04 16:00] VITALS: BP 151/80
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
[2016-12-04 20:00] VITALS: BP 127/64
[2016-12-04] MEDS: Vancomycin 1gm in D5W 275ml IVPB SCH (21:05)
[2016-12-05 00:03] VITALS: BP 125/62
[2016-12-05 04:00] VITALS: BP 132/68
[2016-12-05] MEDS: Piperacillin/Tazobactam 3.375 GM in D5W 110 ML IVPB SCH ×3 (05:19→22:45)
[2016-12-05] MEDS: NovoLOG Insulin Flexpen SUBQ SCH ×4 (06:30→21:00)
[2016-12-05] MEDS: Morphine Sulfate 2mg/ml Inj IVP PRN ×3 (07:58→16:45)
[2016-12-05 08:00] VITALS: BP 112/55
[2016-12-05] MEDS: Atenolol 25mg tab ORAL SCH (09:00)
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
[2016-12-05 12:00] VITALS: BP 124/60
--- NOTE | 2016-12-05 15:50 | Pulmonology Progress Note ---
Assessment/Plan Problems: (1) Decubital ulcer (2) Hypertension (3) Diabetes mellitus (4) Pressure ulcer of right ischium Assessment/Plan wound care sliding sclae diabetic diet dvt prophylaxis dc planning in process ID note appreciated Subjective ROS Limited/Unobtainable: No Interval Events: doing better Constitutional: Reports: no symptoms HEENT: Repors: no symptoms Respiratory: Reports: no symptoms Allergies: Coded Allergies: SIMVASTATIN (Verified Adverse Reaction, Severe, MUSCLE WEAKNESS, 11/27/16) Objective Last 24 Hour Vital Signs Date Time Temp Pulse Resp B/P (MAP) Pulse Ox O2 Delivery O2 Flow Rate FiO2 12/05/16 12:00 97.5 63 12 124/60 98 Room Air 12/05/16 09:00 108/56 12/05/16 09:00 79 108/56 12/05/16 08:00 97.5 78 15 112/55 98 Room Air 12/05/16 04:00 98.2 84 20 132/68 97 Room Air 12/05/16 00:03 98.2 66 19 125/62 100 Room Air 12/04/16 21:47 98.1 12/04/16 20:00 98.2 64 18 127/64 98 Room Air 12/04/16 16:00 98.1 64 18 151/80 98 Room Air Intake and Output 12/05/16 12/06/16 19:00 07:00 Intake Total 422.5 ml Balance 422.5 ml Intake Oral 240 ml IV Total 182.5 ml General Appearance: WD/WN HEENT: normocephalic, anicteric Abdomen: normal bowel sounds Extremities: no cyanosis Current Medications Medications (Trade) Dose Ordered Sig/Venkata Route PRN Reason Start Time Stop Time Status Last Admin Dose Admin Acetaminophen (Tylenol) 650 mg Q4H PRN ORAL fever 11/28/16 18:30 12/28/16 18:29 Al Hydroxide/Mg Hydroxide (Mylanta II) 30 ml Q6H PRN ORAL dyspepsia 11/28/16 18:30 12/28/16 18:29 Atenolol (Tenormin) 25 mg DAILY ORAL 11/29/16 09:00 12/29/16 08:59 Benazepril HCl (Lotensin) 40 mg DAILY ORAL 11/29/16 09:00 12/29/16 08:59 12/01/16 08:21 Dextrose (Dextrose 50%) STAT PRN IV Hypoglycemia 11/28/16 18:30 12/28/16 18:29 Gabapentin (Neurontin) 300 mg BEDTIME ORAL 11/28/16 21:00 12/28/16 20:59 12/04/16 21:05 Insulin Aspart (NovoLOG) BEFORE MEALS AND HS SUBQ 11/28/16 21:00 12/28/16 20:59 12/04/16 21:12 Lorazepam (Ativan 2mg/ml 1ml) 0.5 mg Q4H PRN IV For Anxiety 11/28/16 18:30 12/05/16 18:29 Morphine Sulfate (Morphine Sulfate) 1 mg Q4H PRN IVP For Pain 4-11/28/16 18:30 12/05/16 18:29 12/05/16 11:59 Ondansetron HCl (Zofran) 4 mg Q6H PRN IVP Nausea & Vomiting 11/28/16 18:30 12/28/16 18:29 11/28/16 20:34 Piperacillin Sod/ Tazobactam Sod 3.375 gm/Dextrose 110 ml @ 27.5 mls/hr Q8HR IVPB 11/29/16 22:00 12/06/16 21:59 12/05/16 14:01 Polyethylene Glycol (Miralax) 17 gm HSPRN PRN ORAL Constipation 11/28/16 18:30 12/28/16 18:29 Sodium Chloride 1,000 ml @ 50 mls/hr Q20H IV 11/28/16 21:30 12/28/16 21:29 12/04/16 17:19 Vancomycin HCl (Vanco rx to dose) 1 ea DAILYPRN PRN MISC Per rx protocol 11/29/16 18:45 12/29/16 18:44 Vancomycin HCl 1 gm/Dextrose 275 ml @ 183.708 mls/hr Q24H IVPB 12/01/16 22:00 12/06/16 21:59 12/04/16 21:05 Zolpidem Tartrate (Ambien) 5 mg HSPRN PRN ORAL Insomnia 11/28/16 18:30 12/05/16 18:29 RADHA HERRMANN Dec 05, 2016 15:50
[2016-12-05 16:00] VITALS: BP 126/61
[2016-12-05 18:10] LABS: APPEARANCE,URINE CLEAR; KETONES,URINE NEGATIVE (NEGATIVE); LEUKOCYTE ESTERASE ,URINE 3+ (NEGATIVE); NITRITE,URINE NEGATIVE (NEGATIVE); PH,URINE 7 (4.5-8.0); PROTEIN,URINE 2+ (NEGATIVE); UROBILINOGEN,URINE NORMAL MG/DL (0.0-1.0)
[2016-12-05 18:33] LABS: BACTERIA,URINE FEW /HPF
[2016-12-05 20:00] VITALS: BP 106/54
[2016-12-05] MEDS: Morphine Sulfate 4mg/ml Inj IVP PRN (20:40)
[2016-12-05] MEDS: Vancomycin 1gm in D5W 275ml IVPB SCH (21:07)
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
[2016-12-06] VITALS: BP 113/57
[2016-12-06 04:00] VITALS: BP 109/52
[2016-12-06] MEDS: Piperacillin/Tazobactam 3.375 GM in D5W 110 ML IVPB SCH ×2 (05:21→15:25)
[2016-12-06] MEDS: NovoLOG Insulin Flexpen SUBQ SCH ×4 (06:30→20:50)
[2016-12-06] MEDS: Morphine Sulfate 4mg/ml Inj IVP PRN ×4 (07:55→20:48)
[2016-12-06 08:00] VITALS: BP 128/59
[2016-12-06] MEDS: Atenolol 25mg tab ORAL SCH (09:00)
[2016-12-06 12:00] VITALS: BP_SYST 122; BP_SYST 124; BP_DIAS 60; BP_DIAS 61
[2016-12-06] MEDS ORDERED: Tubing IV Secondary IV ONE ×2 (15:48→15:49)
[2016-12-06] MEDS ORDERED: 1/2 NS 1000ml IV ONE (15:48)
[2016-12-06] MEDS ORDERED: Sterile Water For Irrig 2000ml IRRIG ONE (15:49)
[2016-12-06 15:53] VITALS: BP 151/76
--- NOTE | 2016-12-06 17:13 | Pulmonology Progress Note ---
Assessment/Plan Problems: (1) Decubital ulcer (2) Hypertension (3) Diabetes mellitus (4) Pressure ulcer of right ischium Assessment/Plan no new complains wound care sliding sclae diabetic diet dvt prophylaxis dc planning in process in am ID note appreciated Subjective ROS Limited/Unobtainable: No Constitutional: Reports: no symptoms HEENT: Repors: no symptoms Allergies: Coded Allergies: SIMVASTATIN (Verified Adverse Reaction, Severe, MUSCLE WEAKNESS, 11/27/16) Objective Last 24 Hour Vital Signs Date Time Temp Pulse Resp B/P (MAP) Pulse Ox O2 Delivery O2 Flow Rate FiO2 12/06/16 15:53 97.8 75 19 151/76 97 Room Air 12/06/16 12:00 97.9 62 18 122/61 96 Room Air 12/06/16 12:00 97.5 63 20 124/60 98 Room Air 12/06/16 09:00 128/59 12/06/16 09:00 88 128/59 12/06/16 08:00 97.5 88 20 128/59 96 Room Air 12/06/16 04:00 98.2 78 20 109/52 97 Room Air 12/06/16 00:00 98.2 71 21 113/57 98 Room Air 12/05/16 21:10 98.1 12/05/16 20:00 98.4 68 20 106/54 97 Room Air Intake and Output 12/06/16 12/07/16 19:00 07:00 Intake Total 422.5 ml Balance 422.5 ml Intake Oral 240 ml IV Total 182.5 ml General Appearance: WD/WN HEENT: normocephalic, atraumatic Respiratory/Chest: chest wall non-tender, lungs clear, normal breath sounds Cardiovascular: normal peripheral pulses, normal rate Abdomen: soft, non tender Genitourinary: normal external genitalia Skin: no lesions Microbiology Date/Time Source Procedure Growth Status 12/05/16 16:40 Urine,Ureter/Kidney Urine Culture - Preliminary NO GROWTH Resulted Current Medications Medications (Trade) Dose Ordered Sig/Venkata Route PRN Reason Start Time Stop Time Status Last Admin Dose Admin Acetaminophen (Tylenol) 650 mg Q4H PRN ORAL fever 11/28/16 18:30 12/28/16 18:29 Al Hydroxide/Mg Hydroxide (Mylanta II) 30 ml Q6H PRN ORAL dyspepsia 11/28/16 18:30 12/28/16 18:29 Atenolol (Tenormin) 25 mg DAILY ORAL 11/29/16 09:00 12/29/16 08:59 Benazepril HCl (Lotensin) 40 mg DAILY ORAL 11/29/16 09:00 12/29/16 08:59 12/01/16 08:21 Dextrose (Dextrose 50%) STAT PRN IV Hypoglycemia 11/28/16 18:30 12/28/16 18:29 Gabapentin (Neurontin) 300 mg BEDTIME ORAL 11/28/16 21:00 12/28/16 20:59 12/05/16 20:40 Insulin Aspart (NovoLOG) BEFORE MEALS AND HS SUBQ 11/28/16 21:00 12/28/16 20:59 12/05/16 21:00 Morphine Sulfate (Morphine Sulfate) 1 mg Q4H PRN IVP PAIN 4-10 12/05/16 20:45 12/12/16 20:44 12/06/16 16:42 Ondansetron HCl (Zofran) 4 mg Q6H PRN IVP Nausea & Vomiting 11/28/16 18:30 12/28/16 18:29 11/28/16 20:34 Piperacillin Sod/ Tazobactam Sod 3.375 gm/Dextrose 110 ml @ 27.5 mls/hr Q8HR IVPB 11/29/16 22:00 12/06/16 21:59 12/06/16 15:25 Piperacillin Sod/ Tazobactam Sod 3.375 gm/Sodium Chloride 110 ml @ 27.5 mls/hr EVERY 8 HOURS IVPB 12/06/16 22:00 12/11/16 21:59 Polyethylene Glycol (Miralax) 17 gm HSPRN PRN ORAL Constipation 11/28/16 18:30 12/28/16 18:29 Sodium Chloride 1,000 ml @ 50 mls/hr Q20H IV 11/28/16 21:30 12/28/16 21:29 12/06/16 12:11 Vancomycin HCl (Vanco rx to dose) 1 ea DAILYPRN PRN MISC Per rx protocol 11/29/16 18:45 12/29/16 18:44 Vancomycin HCl 1 gm/Dextrose 275 ml @ 183.708 mls/hr Q24H IVPB 12/01/16 22:00 12/11/16 21:59 12/05/16 21:07 RADHA HERRMANN Dec 06, 2016 17:13
[2016-12-06 20:00] VITALS: BP 134/70
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
[2016-12-06] MEDS: Piperacillin/Tazobactam 3.375 GM in NS 110 ML IVPB SCH (20:58)
[2016-12-06] MEDS: Vancomycin 1gm in D5W 275ml IVPB SCH (23:30)
[2016-12-07] VITALS: BP_SYST 111; BP_SYST 130; BP_DIAS 67; BP_DIAS 72
[2016-12-07 04:00] VITALS: BP 119/58
[2016-12-07] MEDS: NovoLOG Insulin Flexpen SUBQ SCH ×2 (05:46→11:30)
[2016-12-07] MEDS: Piperacillin/Tazobactam 3.375 GM in NS 110 ML IVPB SCH (05:46)
[2016-12-07 08:15] VITALS: BP 115/56
[2016-12-07] MEDS: Atenolol 25mg tab ORAL SCH (09:00)
[2016-12-07] MEDS: Morphine Sulfate 4mg/ml Inj IVP PRN (09:17)
[2016-12-07 12:00] VITALS: BP 125/65
--- NOTE | 2016-12-07 16:41 | Pulmonology Progress Note ---
Assessment/Plan Problems: (1) Decubital ulcer (2) Hypertension (3) Diabetes mellitus (4) Pressure ulcer of right ischium Assessment/Plan improving wound care sliding sclae diabetic diet dvt prophylaxis dc planning i today Subjective ROS Limited/Unobtainable: No Constitutional: Reports: no symptoms HEENT: Repors: no symptoms Respiratory: Reports: no symptoms Allergies: Coded Allergies: SIMVASTATIN (Verified Adverse Reaction, Severe, MUSCLE WEAKNESS, 11/27/16) Objective Last 24 Hour Vital Signs Date Time Temp Pulse Resp B/P (MAP) Pulse Ox O2 Delivery O2 Flow Rate FiO2 12/07/16 12:00 97.9 20 125/65 96 Room Air 12/07/16 09:00 115/56 12/07/16 09:00 86 115/56 12/07/16 08:15 97.9 86 21 115/56 95 Room Air 12/07/16 04:00 98.0 85 18 119/58 99 Room Air 2.0 12/07/16 00:00 97.7 80 18 111/72 99 Room Air 12/07/16 00:00 98.1 78 18 130/67 95 Room Air 12/06/16 20:00 98.2 83 18 134/70 99 Room Air Intake and Output 12/07/16 12/08/16 19:00 07:00 Intake Total 240 ml Balance 240 ml Intake Oral 240 ml General Appearance: WD/WN HEENT: normocephalic, atraumatic, anicteric Cardiovascular: normal peripheral pulses, regular rhythm Abdomen: normal bowel sounds, soft, non tender Genitourinary: normal external genitalia Extremities: no clubbing Skin: no rash, no ulcers Microbiology Date/Time Source Procedure Growth Status 12/05/16 16:40 Urine,Ureter/Kidney Urine Culture - Preliminary NO GROWTH AFTER 24 HOURS Resulted Laboratory Tests 12/06/16 21:15: Vancomycin Level Trough 15.3H RADHA HERRMANN Dec 07, 2016 16:41
--- NOTE | 2016-12-08 16:20 | Discharge Summary ---
Discharge Summary Hospital Course Date of Admission Nov 28, 2016 at 18:32 Date of Discharge Dec 07, 2016 at 14:06 Admitting Diagnosis HPI Jeff Nava is a 76 year old male who was admitted on Nov 28, 2016 at 18:32 for Ischial Ulcer Hospital Course [id number] Discharge Discharge Disposition Patient was discharged to [facility] Discharge Diagnoses: Reema Lopez NP Dec 08, 2016 16:20
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
== END 2016-12-07 14:06 | DRG 981 ==
LOC: UNDOADMIN 09:19 → SDSOVERFLO 09:19 → 4E 18:32 → SDSOVERFLO 18:49 → 4E 18:49
PROC: 0QB30ZZ Excision of Left Pelvic Bone, Open Approach (ICD-10-PCS; principal; 2016-11-28 11:30)
PROC: 0KXN0ZZ Transfer Right Hip Muscle, Open Approach (ICD-10-PCS; principal; 2016-11-28 11:30)
PROC: 0KXQ0ZZ Transfer Right Upper Leg Muscle, Open Approach (ICD-10-PCS; principal; 2016-11-28 11:30)
PROC: 0T2BX0Z Change Drainage Device in Bladder, External Approach (ICD-10-PCS; 2016-12-05)
DX: L89.314 Pressure ulcer of right buttock, stage 4 (principal); E43 Unspecified severe protein-calorie malnutrition; N17.9 Acute kidney failure, unspecified; G82.20 Paraplegia, unspecified; K59.2 Neurogenic bowel, not elsewhere classified; E11.65 Type 2 diabetes mellitus with hyperglycemia; Z89.612 Acquired absence of left leg above knee; E83.42 Hypomagnesemia; D64.9 Anemia, unspecified; I10 Essential (primary) hypertension; W34.00XS Accidental discharge from unspecified firearms or gun, sequela; E87.6 Hypokalemia; Z88.8 Allergy status to other drugs, medicaments and biological substances; N31.9 Neuromuscular dysfunction of bladder, unspecified; I73.9 Peripheral vascular disease, unspecified; R31.0 Gross hematuria; Y84.6 Urinary catheterization as the cause of abnormal reaction of the patient, or of later complication, without mention of misadventure at the time of the procedure
CPT/HCPCS: 36415; 80048; 80053; 80061; 80202; 81001; 82607; 82728; 82746; 82962; 83036; 83540; 83550; 83735; 84100; 84134; 85007; 85025; 85651; 86140; 87081; 87086; 94003; 94150; 97802; J1815; J2250; J2405; J2765; J8499

== ENCOUNTER 2016-12-22 14:49 | Inpatient (IN) | payer MEDICARE, OTHER ==
[~2016-12-22] VITALS: Ht 193 cm; Wt 87.1 kg
[~2016-12-22 14:49] MED LIST: ACETAMINOPHEN-1 EAC1 ORAL; ACTOS45 MG ORAL; ASPIR 8181 MG ORAL; ATENOLOL25 MG ORAL; BENAZEPRIL HCL40 MG ORAL; FERROUS SULFAT325 MG ORAL; FOLIC ACID1 MG ORAL; GABAPENTIN300 MG ORAL; INDAPAMIDE2.5 MG ORAL; LOVASTATIN20 MG ORAL; NEXIUM40 MG ORAL
[2016-12-22 15:10] VITALS: BP 103/68
--- NOTE | 2016-12-22 15:22 | Emergency Room Report ---
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 He complains about pain at 7/10 at this time. He says that his doctor evaluated him and there was oozing at that spot. His doctor wants him admitted to the hospital IV antibiotics because of a resistant wound infection. He has had problems with erythromycin in the past. He had a BKA. In part this was due to DM. States sugars controlled. No URI, cough, NVD, dysuria, PEARCE, depression. Allergies: Coded Allergies: VANCOMYCIN (Verified Allergy, Unknown, 12/22/16) SIMVASTATIN (Verified Adverse Reaction, Severe, MUSCLE WEAKNESS, 11/27/16) Patient History Past Medical History: see triage record Past Surgical History: other - AKA R Social History: Denies: smoking Social History Narrative at SNF Reviewed Nursing Documentation: PMH: Agreed, PSxH: Agreed Nursing Documentation-PMH Past Medical History: No History, Except For Hx Cardiac Problems: Yes - HYPERTENSION Hx Hypertension: Yes Hx Diabetes: Yes Hx Cancer: No Hx Gastrointestinal Problems: No Hx Neurological Problems: No Review of Systems All Other Systems: negative except mentioned in HPI Physical Exam Vital Signs Date Time Temp Pulse Resp B/P (MAP) Pulse Ox O2 Delivery O2 Flow Rate FiO2 12/22/16 14:49 97.7 66 18 116/58 97 Room Air Sp02 EP Interpretation: reviewed, normal General Appearance: well appearing, no apparent distress, GCS 15 Head: normocephalic Eyes: bilateral eye normal inspection, bilateral eye PERRL ENT: moist mucus membranes Neck: supple Respiratory: lungs clear, normal breath sounds Cardiovascular #1: regular rate, rhythm Cardiovascular #2: 2+ radial (R) Gastrointestinal: normal inspection, normal bowel sounds, non tender, no mass, non-distended Musculoskeletal: back normal, normal range of motion, other - BKA R Neurologic: alert, oriented x3, grossly normal Psychiatric: mood/affect normal Skin: warm/dry, other - draining opening posterior R thigh, no erythema. Stump without inflammation Medical Decision Making Diagnostic Impression: Primary Impression: Wound infection with gas Additional Impressions: Gas gangrene Renal insufficiency UTI (urinary tract infection) Qualified Codes: N30.00 - Acute cystitis without hematuria ER Course The patient presents with worsening infection in the right thigh. Differential includes cellulitis, abscess, osteomyelitis and amongst others. Due to poor circulation the patient is at risk for serious infection. Evaluation with blood cultures, lactate labs. Also the x-ray will be obtained to exclude osteomyelitis. The patient will receive IV hydration and also if indicated antibiotics. Labs with leukocytosis and hyponatremia. Renal insufficiency. X-ray reveals gas formation in the thigh. Antibiotics were ordered. Vancomycin was also ordered as patient reports problems with erythromycin. Admit med Dr. Elliott. Laboratory Tests Test 12/22/16 15:34 12/22/16 16:50 White Blood Count 16.2 K/UL (4.8-10.8) H Red Blood Count 3.88 M/UL (4.70-6.10) L Hemoglobin 10.4 G/DL (14.2-18.0) L Hematocrit 32.3 % (42.0-52.0) L Mean Corpuscular Volume 83 FL (80-99) Mean Corpuscular Hemoglobin 26.9 PG (27.0-31.0) L Mean Corpuscular Hemoglobin Concent 32.3 G/DL (32.0-36.0) Red Cell Distribution Width 15.6 % (11.6-14.8) H Platelet Count 229 K/UL (150-450) Mean Platelet Volume 7.2 FL (6.5-10.1) Neutrophils (%) (Auto) % (45.0-75.0) Lymphocytes (%) (Auto) % (20.0-45.0) Monocytes (%) (Auto) % (1.0-10.0) Eosinophils (%) (Auto) % (0.0-3.0) Basophils (%) (Auto) % (0.0-2.0) Neutrophils % (Manual) Pending Lymphocytes % (Manual) Pending Platelet Estimate Pending Platelet Morphology Pending Erythrocyte Sedimentation Rate 66 MM/HR (0-20) H Prothrombin Time 12.8 SEC (9.30-11.50) H Prothrombin Time INR 1.2 (0.9-1.1) H PTT 32 SEC (23-33) Urine Color Yellow Urine Appearance Slightly cloudy Urine pH 6 (4.5-8.0) Urine Specific [place] 1.010 (1.005-1.035) Urine Protein 3+ (NEGATIVE) H Urine Glucose (UA) Negative (NEGATIVE) Urine Ketones Negative (NEGATIVE) Urine Occult Blood 5+ (NEGATIVE) H Urine Nitrite Negative (NEGATIVE) Urine Bilirubin Negative (NEGATIVE) Urine Urobilinogen 1 MG/DL (0.0-1.0) H Urine Leukocyte Esterase 3+ (NEGATIVE) H Urine RBC 10-15 /HPF (0 - 0) H Urine WBC 5-10 /HPF (0 - 0) H Urine Squamous Epithelial Cells None /LPF (NONE/OCC) Urine Amorphous Sediment Moderate /LPF (NONE) H Urine Bacteria Moderate /HPF (NONE) H Urine Yeast Few /HPF (NONE) H Sodium Level 128 MMOL/L (136-145) L Potassium Level 3.7 MMOL/L (3.5-5.1) Chloride Level 93 MMOL/L (98-107) L Carbon Dioxide Level 28 MMOL/L (21-32) Anion Gap 7 mmol/L (5-15) Blood Urea Nitrogen 27 mg/dL (7-18) H Creatinine 2.1 MG/DL (0.55-1.30) H Estimate Glomerular Filtration Rate mL/min (>60) Glucose Level 156 MG/DL (74-106) H Calcium Level 8.5 MG/DL (8.5-10.1) Total Bilirubin 0.4 MG/DL (0.2-1.0) Aspartate Amino Transferase (AST) 26 U/L (15-37) Alanine Aminotransferase (ALT) 16 U/L (12-78) Alkaline Phosphatase 107 U/L (46-116) Total Creatine Kinase 161 U/L (26-308) Troponin I 0.007 ng/mL (0.000-0.056) Pro-B-Type Natriuretic Peptide 4211 pg/mL (0-125) H Total Protein 6.6 G/DL (6.4-8.2) Albumin 2.2 G/DL (3.4-5.0) L Globulin 4.4 g/dL Albumin/Globulin Ratio 0.5 (1.0-2.7) L Lactic Acid Level 1.20 mmol/L (0.66-2.22) EKG Diagnostic Results Rate: normal Rhythm: NSR ST Segments: no acute changes Rhythm Strip Diag. Results EP Interpretation: yes Rhythm: NSR, no PVC's, no ectopy Chest X-Ray Diagnostic Results Chest X-Ray Diagnostic Results : Chest X-Ray Ordered: Yes # of Views/Limited/Complete: 1 View Indication: Other Interpretation: no pneumothorax, other - L effusion and peel, cannot exclude infiltrate Impression: Other Electronically Signed by: Electronically signed by Evelio Cunningham MD Other X-Ray Diagnostic Results Other X-Ray Diagnostic Results : X-Ray ordered: R femur # of Views/Limited Vs Complete: 4 View Indication: Other EP Interpretation: Yes Interpretation: no dislocation, no fractures, other - Vascular prosthesis, degenerative disease of the hip and possible gas formation in the soft tissue Impression: Other Electronically Signed by: Electronically signed by Evelio Cunningham MD Status: improved Disposition: ADMITTED INPATIENT Condition: Serious Evelio Cunningham M.D. Dec 22, 2016 15:22
[2016-12-22 16:09] LABS: INR 1.2 (0.9-1.1)
[2016-12-22 16:10] LABS: HEMATOCRIT 32.3 % (42.0-52.0); HEMOGLOBIN 10.4 G/DL (14.2-18.0); MEAN CORPUSCULAR VOLUME 83 FL (80-99); PLATELET COUNT 229 K/UL (150-450); RED BLOOD COUNT 3.88 M/UL (4.70-6.10); RED CELL DISTRIBUTION WIDTH 15.6 % (11.6-14.8); WHITE BLOOD COUNT 16.2 K/UL (4.8-10.8)
[2016-12-22 16:17] LABS: ALANINE AMINOTRANSFERASE 16 U/L (12-78); ALBUMIN 2.2 G/DL (3.4-5.0); ALBUMIN/GLOBULIN RATIO 0.5 (1.0-2.7); ALKALINE PHOSPHATASE 107 U/L (46-116); ANION GAP 7 mmol/L (5-15); ASPARTATE AMINO TRANSFERASE 26 U/L (15-37); BILIRUBIN,TOTAL 0.4 MG/DL (0.2-1.0); BLOOD UREA NITROGEN 27 mg/dL (7-18); CALCIUM 8.5 MG/DL (8.5-10.1); CARBON DIOXIDE 28 MMOL/L (21-32); CHLORIDE 93 MMOL/L (98-107); CREATININE 2.1 MG/DL (0.55-1.30); POTASSIUM 3.7 MMOL/L (3.5-5.1); SODIUM 128 MMOL/L (136-145)
[2016-12-22 16:24] LABS: BILIRUBIN, URINE NEGATIVE (NEGATIVE); CREATINE KINASE 161 U/L (26-308); GLUCOSE, URINE (UA) NEGATIVE (NEGATIVE); KETONES,URINE NEGATIVE (NEGATIVE); LEUKOCYTE ESTERASE ,URINE 3+ (NEGATIVE); NITRITE,URINE NEGATIVE (NEGATIVE); PH,URINE 6 (4.5-8.0); PROTEIN,URINE 3+ (NEGATIVE); UROBILINOGEN,URINE 1 MG/DL (0.0-1.0)
[2016-12-22 16:30] LABS: APPEARANCE,URINE SLIGHTLY CLOUDY; COLOR,URINE YELLOW
[2016-12-22] MEDS ORDERED: Zosyn 3.375gm/50ml Premix 50 ML IVPB STA (16:37)
--- NOTE | 2016-12-22 16:44 | Diagnostic Imaging Report ---
Indications: OSTEOMY Technique: Two views of the right femur Comparison: None Findings: Soft tissue gas is seen within the mid right thigh, medially laterally and posteriorly. There is marked deformity of the right femoral head, as well as evidence of chronic dislocation and formation of pseudoacetabulum. Numerous vascular stents are seen over the expected course of the superficial femoral artery. There is some heterotopic new bone formation medial to the proximal femur. There is also heterotopic new bone adjacent to the right pubic bone. There is sclerosis and indistinctness of the margins of the right inferior pubic ramus. Considerable heterotopic new bone is also seen adjacent to the neoacetabulum. One small osseous fragment is seen anterior to the femoral neck on the frog lateral view. This appears to be more likely be an osseous fragment and heterotopic new bone although could represent the latter. There is slight deformity of the distal femur, which could be on the basis of prior trauma or other insult Impression: Soft tissue gas within the proximal thigh. This is concerning for infection with a gas-forming organism. Could also indicate penetrating trauma or surgery if there has been such recently Extensive chronic appearing deformity of the right hip and acetabulum. Osseous extensive heterotopic new bone surrounding the proximal femur as well as adjacent to the pubic bones. Osseous fragment adjacent to the femoral neck, probably heterotopic new bone but a fracture fragment of indeterminate acuity also possible Markedly sclerotic right inferior pubic ramus and ischium with apparent erosion of the cortical surface. Neoplasm or chronic osteomyelitis a possibility. Evidence of prior extensive endovascular therapy of the superficial femoral artery Slight distal femoral deformity, as described, chronic appearing : Report phoned to Dr. Cunningham in emergency room at the time of interpretation
[2016-12-22] MEDS ORDERED: Vancomycin 1.5gm/D5W 250ml 250 ML IVPB ONE (16:45)
--- NOTE | 2016-12-22 16:45 | Diagnostic Imaging Report ---
Indication: Chest pain Technique: One view of the chest Comparison: 10/09/2016 Findings: There is left-sided pleural fluid versus thickening, which appears increased from the previous study. The remainder the lungs and pleural spaces are clear. Heart size is normal. Impression: Left-sided pleural fluid versus chronic pleural thickening. No acute process otherwise
[2016-12-22] MEDS ORDERED: VITAMIN C500 M1 ORAL (17:15)
[2016-12-22] MEDS ORDERED: MULTIVITAMINS1 EAC2 ORAL (17:15)
[2016-12-22] MEDS ORDERED: MULTIVITAMINS1 EAC8 ORAL (17:18)
[2016-12-22 17:30] VITALS: BP 111/62
[2016-12-22] MEDS ORDERED: Piperacillin/Tazobactam 3.375 GM in D5W 110 ML IVPB ONE (18:00)
[2016-12-22] MEDS ORDERED: Zosyn 3.375gm inj ONE (18:17)
[2016-12-22 18:45] VITALS: BP 120/58
[2016-12-22] MEDS ORDERED: Albuterol/Ipratropium 3ml neb HHN PRN (18:45)
[2016-12-22] MEDS ORDERED: Miralax 17gm pkt ORAL PRN (18:45)
[2016-12-22] MEDS ORDERED: Nitroglycerin Subl 0.4mg tab SL PRN (18:45)
[2016-12-22 20:00] VITALS: BP 111/57
[2016-12-22] MEDS ORDERED: Heparin 5000 units/ml inj SUBQ SCH (21:00)
[2016-12-22] MEDS: NovoLOG Insulin Flexpen SUBQ SCH (21:41)
[2016-12-23] VITALS: BP 95/55
[2016-12-23] MEDS ORDERED: Cefepime HCl 2 GM in NS 110 ML IV SCH ×2
[2016-12-23] MEDS ORDERED: Vancomycin 1 GM in D5W 275 ML IV SCH (00:30)
[2016-12-23 04:00] VITALS: BP 105/58
[2016-12-23] MEDS ORDERED: Morphine Sulfate 4mg/ml Inj IVP PRN ×2 (04:15→12:15)
[2016-12-23] MEDS: NovoLOG Insulin Flexpen SUBQ SCH ×4 (06:30→20:48)
[2016-12-23 07:44] LABS: HEMOGLOBIN 10.4 G/DL (14.2-18.0); MEAN CORPUSCULAR VOLUME 84 FL (80-99); PLATELET COUNT 242 K/UL (150-450); RED BLOOD COUNT 3.94 M/UL (4.70-6.10); RED CELL DISTRIBUTION WIDTH 16.3 % (11.6-14.8); WHITE BLOOD COUNT 13.2 K/UL (4.8-10.8)
[2016-12-23 07:57] LABS: CHOLESTEROL 103 MG/DL (< 200); HDL CHOLESTEROL 11 MG/DL (40-60); TRIGLYCERIDES 115 MG/DL (0-200)
[2016-12-23 08:02] LABS: ALANINE AMINOTRANSFERASE 12 U/L (12-78); ALBUMIN 2.1 G/DL (3.4-5.0); ALBUMIN/GLOBULIN RATIO 0.5 (1.0-2.7); ALKALINE PHOSPHATASE 98 U/L (46-116); ANION GAP 9 mmol/L (5-15); ASPARTATE AMINO TRANSFERASE 21 U/L (15-37); BILIRUBIN,TOTAL 0.3 MG/DL (0.2-1.0); BLOOD UREA NITROGEN 29 mg/dL (7-18); CALCIUM 8.7 MG/DL (8.5-10.1); CARBON DIOXIDE 26 MMOL/L (21-32); CHLORIDE 98 MMOL/L (98-107); CREATININE 1.7 MG/DL (0.55-1.30); POTASSIUM 3.1 MMOL/L (3.5-5.1); SODIUM 133 MMOL/L (136-145)
[2016-12-23 08:05] VITALS: BP 104/59
[2016-12-23] MEDS ORDERED: Ascorbic Acid 500mg tab ORAL SCH (09:00)
[2016-12-23] MEDS ORDERED: Atenolol 25mg tab ORAL SCH (09:00)
[2016-12-23] MEDS: Atenolol 25mg tab ORAL SCH (09:15)
[2016-12-23] MEDS: Heparin 5000 units/ml inj SUBQ SCH ×2 (09:15→20:53)
[2016-12-23] MEDS ORDERED: Nitroglycerin Subl 0.4mg tab SL PRN (09:15)
[2016-12-23] MEDS: Ascorbic Acid 500mg tab ORAL SCH (09:34)
[2016-12-23] MEDS ORDERED: Sodium Chloride 500ML 500 ML IVPB ONE (10:30)
[2016-12-23] MEDS ORDERED: Albuterol/Ipratropium 3ml neb HHN PRN (10:45)
--- NOTE | 2016-12-23 11:10 | Consultation ---
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 He was d/c'd to SNF on a [facility] Bed after a 9 day hospitalization on the same bed. Upon d/c from the hospital his flap was healing well. He was taken of the clinitron bed on 12/21 and placed on a different type of mattress (patient states it was a foam mattress) and on 12/22 began having some drainage from the medial lower flap incision located on the distal medial posterior thigh. He was transferred back to the hospital last night. He has no fevers/chills. He had a WBC of 16k yesterday down to 13k today. Allergies: Coded Allergies: VANCOMYCIN (Verified Allergy, Unknown, 12/22/16) SIMVASTATIN (Verified Adverse Reaction, Severe, MUSCLE WEAKNESS, 11/27/16) Medication History Scheduled Ascorbic Acid* (Vitamin C*), 500 MG ORAL DAILY, (Reported) Aspirin* (Aspir 81*), 81 MG ORAL DAILY, (Reported) Atenolol* (Tenormin*), 25 MG ORAL DAILY, (Reported) Benazepril Hcl* (Benazepril Hcl*), 40 MG ORAL DAILY, (Reported) Ferrous Sulfate* (Ferrous Sulfate*), 325 MG ORAL DAILY, (Reported) Folic Acid* (Folic Acid*), 1 MG ORAL DAILY, (Reported) Gabapentin* (Gabapentin*), 300 MG ORAL BEDTIME, (Reported) Indapamide* (Indapamide*), 2.5 MG ORAL DAILY, (Reported) Lovastatin (Lovastatin), 20 MG ORAL BEDTIME, (Reported) Multivitamin With Minerals (Multivitamins With Minerals*), 1 TAB ORAL DAILY, ( Reported) Pioglitazone Hcl* (Actos*), 40 MG ORAL DAILY, (Reported) Scheduled PRN Acetaminophen With Codeine (T#3) (Tylenol #3 Tab*), 1 TAB ORAL Q4H PRN for For Pain, (Reported) Discontinued Medications Esomeprazole Magnesium (Nexium), 40 MG ORAL DAILY, (Reported) Discontinued Reason: Pt stopped taking med Multivitamins* (Multivitamins*), 1 TAB ORAL DAILY, (Reported) Discontinued Reason: Prescription changed Patient History History Provided By: Patient Healthcare decision maker Resuscitation status Advanced Directive on File Review of Systems Constitutional: Reports: no symptoms Eye: Reports: no symptoms Respiratory: Reports: no symptoms Gastrointestinal: Reports: no symptoms Skin: Reports: see HPI Physical Exam General Appearance: no apparent distress, alert Lines, tubes and drains: peripheral Abdomen: non tender, soft Extremities: no edema Skin Exam: other - Flap is viable with no necrosis, erythema, warmth, or fluctuance. On the distal medial limb of the flap there is a 3x.7cm opening along the incision with clear fluid expressable. No purulent drainage and no odor. Flap over the ischium is completely intact. NINA drain site is healed with no fluctuance. Musculoskeletal: normal muscle bulk Last 24 Hour Vital Signs Date Time Temp Pulse Resp B/P (MAP) Pulse Ox O2 Delivery O2 Flow Rate FiO2 12/23/16 08:26 74 16 Nasal Cannula 2.0 28 12/23/16 08:05 97.2 75 20 104/59 100 Nasal Cannula 2.0 12/23/16 07:25 Nasal Cannula 2.0 21 12/23/16 07:25 98 Nasal Cannula 2.0 28 12/23/16 04:00 97.5 79 18 105/58 100 Nasal Cannula 2.0 12/23/16 00:00 97.7 70 19 95/55 97 Room Air 12/22/16 20:00 97.2 70 19 111/57 100 Room Air 12/22/16 18:45 97.6 73 18 120/58 99 Room Air 12/22/16 18:45 73 18 120/58 99 Room Air 12/22/16 17:30 73 15 111/62 99 Room Air 12/22/16 15:10 97.6 73 19 103/68 100 Room Air 12/22/16 14:49 97.7 66 18 116/58 97 Room Air Laboratory Tests Test 12/22/16 15:34 12/22/16 16:50 12/23/16 04:55 White Blood Count 16.2 K/UL (4.8-10.8) H 13.2 K/UL (4.8-10.8) H Red Blood Count 3.88 M/UL (4.70-6.10) L 3.94 M/UL (4.70-6.10) L Hemoglobin 10.4 G/DL (14.2-18.0) L 10.4 G/DL (14.2-18.0) L Hematocrit 32.3 % (42.0-52.0) L 33.0 % (42.0-52.0) L Mean Corpuscular Volume 83 FL (80-99) 84 FL (80-99) Mean Corpuscular Hemoglobin 26.9 PG (27.0-31.0) L 26.3 PG (27.0-31.0) L Mean Corpuscular Hemoglobin Concent 32.3 G/DL (32.0-36.0) 31.3 G/DL (32.0-36.0) L Red Cell Distribution Width 15.6 % (11.6-14.8) H 16.3 % (11.6-14.8) H Platelet Count 229 K/UL (150-450) 242 K/UL (150-450) Mean Platelet Volume 7.2 FL (6.5-10.1) 7.1 FL (6.5-10.1) Neutrophils (%) (Auto) % (45.0-75.0) % (45.0-75.0) Lymphocytes (%) (Auto) % (20.0-45.0) % (20.0-45.0) Monocytes (%) (Auto) % (1.0-10.0) % (1.0-10.0) Eosinophils (%) (Auto) % (0.0-3.0) % (0.0-3.0) Basophils (%) (Auto) % (0.0-2.0) % (0.0-2.0) Differential Total Cells Counted 100 100 Neutrophils % (Manual) 71 % (45-75) 90 % (45-75) H Lymphocytes % (Manual) 20 % (20-45) 2 % (20-45) L Monocytes % (Manual) 6 % (1-10) 6 % (1-10) Eosinophils % (Manual) 0 % (0-3) 2 % (0-3) Basophils % (Manual) 0 % (0-2) 0 % (0-2) Band Neutrophils 3 % (0-8) 0 % (0-8) Platelet Estimate Adequate Adequate Platelet Morphology Normal Normal Hypochromasia 1+ Anisocytosis 1+ Erythrocyte Sedimentation Rate 66 MM/HR (0-20) H Prothrombin Time 12.8 SEC (9.30-11.50) H Prothromb Time International Ratio 1.2 (0.9-1.1) H Activated Partial Thromboplast Time 32 SEC (23-33) Urine Color Yellow Urine Appearance Slightly cloudy Urine pH 6 (4.5-8.0) Urine Specific [place] 1.010 (1.005-1.035) Urine Protein 3+ (NEGATIVE) H Urine Glucose (UA) Negative (NEGATIVE) Urine Ketones Negative (NEGATIVE) Urine Occult Blood 5+ (NEGATIVE) H Urine Nitrite Negative (NEGATIVE) Urine Bilirubin Negative (NEGATIVE) Urine Urobilinogen 1 MG/DL (0.0-1.0) H Urine Leukocyte Esterase 3+ (NEGATIVE) H Urine RBC 10-15 /HPF (0 - 0) H Urine WBC 5-10 /HPF (0 - 0) H Urine Squamous Epithelial Cells None /LPF (NONE/OCC) Urine Amorphous Sediment Moderate /LPF (NONE) H Urine Bacteria Moderate /HPF (NONE) H Urine Yeast Few /HPF (NONE) H Sodium Level 128 MMOL/L (136-145) L 133 MMOL/L (136-145) L Potassium Level 3.7 MMOL/L (3.5-5.1) 3.1 MMOL/L (3.5-5.1) L Chloride Level 93 MMOL/L (98-107) L 98 MMOL/L (98-107) Carbon Dioxide Level 28 MMOL/L (21-32) 26 MMOL/L (21-32) Anion Gap 7 mmol/L (5-15) 9 mmol/L (5-15) Blood Urea Nitrogen 27 mg/dL (7-18) H 29 mg/dL (7-18) H Creatinine 2.1 MG/DL (0.55-1.30) H 1.7 MG/DL (0.55-1.30) H Estimat Glomerular Filtration Rate mL/min (>60) mL/min (>60) Glucose Level 156 MG/DL (74-106) H 97 MG/DL (74-106) Calcium Level 8.5 MG/DL (8.5-10.1) 8.7 MG/DL (8.5-10.1) Total Bilirubin 0.4 MG/DL (0.2-1.0) 0.3 MG/DL (0.2-1.0) Aspartate Amino Transf (AST/SGOT) 26 U/L (15-37) 21 U/L (15-37) Alanine Aminotransferase (ALT/SGPT) 16 U/L (12-78) 12 U/L (12-78) Alkaline Phosphatase 107 U/L (46-116) 98 U/L (46-116) Total Creatine Kinase 161 U/L (26-308) Troponin I 0.007 ng/mL (0.000-0.056) Pro-B-Type Natriuretic Peptide 4211 pg/mL (0-125) H Total Protein 6.6 G/DL (6.4-8.2) 6.5 G/DL (6.4-8.2) Albumin 2.2 G/DL (3.4-5.0) L 2.1 G/DL (3.4-5.0) L Globulin 4.4 g/dL 4.4 g/dL Albumin/Globulin Ratio 0.5 (1.0-2.7) L 0.5 (1.0-2.7) L Lactic Acid Level 1.20 mmol/L (0.66-2.22) Hemoglobin A1c 6.3 % (4.3-6.0) H Triglycerides Level 115 MG/DL (0-200) Cholesterol Level 103 MG/DL (< 200) LDL Cholesterol 41 mg/dL (<100) HDL Cholesterol 11 MG/DL (40-60) L Cholesterol/HDL Ratio 9.4 (3.3-4.4) H Random Vancomycin Level < 2.0 ug/mL Microbiology Date/Time Source Procedure Growth Status 12/22/16 16:00 Leg Right Gram Stain - Final Resulted 12/22/16 16:00 Wound Culture - Preliminary Gram Negative Bacillus 1 Resulted Height (Feet): 6 Height (Inches): 4.00 Weight (Pounds): 192 Medications Current Medications Medications (Trade) Dose Ordered Sig/Venkata Route PRN Reason Start Time Stop Time Status Last Admin Dose Admin Acetaminophen (Tylenol) 650 mg Q4H PRN ORAL fever (temp > 100.5 F) 12/23/16 10:45 01/21/17 18:44 Albuterol/ Ipratropium (Albuterol/ Ipratropium) 3 ml Q4H PRN HHN Shortness of Breath 12/23/16 10:45 12/27/16 18:44 Ascorbic Acid (Vitamin C) 500 mg DAILY ORAL 12/23/16 09:15 01/22/17 08:59 12/23/16 09:34 Atenolol (Tenormin) 25 mg DAILY ORAL 12/23/16 09:15 01/22/17 08:59 Cefepime HCl 2 gm/ Sodium Chloride 110 ml @ 220 mls/hr Q24H IV 12/24/16 00:00 12/30/16 00:00 Dextrose (Dextrose 50%) STAT PRN IV Hypoglycemia 12/23/16 18:45 01/21/17 18:44 Gabapentin (Neurontin) 300 mg BEDTIME ORAL 12/23/16 21:00 01/21/17 20:59 Heparin Sodium (Porcine) (Heparin 5000 units/ml) 5,000 units EVERY 12 HOURS SUBQ 12/23/16 09:15 01/21/17 20:59 Insulin Aspart (NovoLOG) BEFORE MEALS AND HS SUBQ 12/23/16 11:30 01/21/17 20:59 Morphine Sulfate (Morphine Sulfate) 4 mg Q4H PRN IVP For Pain 12/23/16 12:15 12/30/16 04:14 Nitroglycerin (Ntg) 0.4 mg Q5M PRN SL Prn Chest Pain 12/23/16 09:15 01/21/17 18:44 Ondansetron HCl (Zofran) 4 mg Q6H PRN IVP Nausea & Vomiting 12/23/16 12:45 01/21/17 18:44 Polyethylene Glycol (Miralax) 17 gm DAILYPRN PRN ORAL Constipation 12/23/16 18:45 01/21/17 18:44 Sodium Chloride 1,000 ml @ 50 mls/hr Q20H IV 12/23/16 22:15 01/22/17 22:14 Temazepam (Restoril) 15 mg HSPRN PRN ORAL Insomnia 12/23/16 18:45 12/29/16 18:44 Assessment/Plan Status: stable Assessment/Plan Need to see if there is a deeper fluid collection and where the fluid collection is originating from. Will need to get a scan to evaluate this. Advised patient to remain on his sides and not place pressure on his posterior thigh. Also, will add calcium alginate and dry dressing to keep that are free of excess moisture. SOURAV PALMER Dec 23, 2016 11:10
--- NOTE | 2016-12-23 11:30 | History and Physical ---
History of Present Illness General Date patient seen: Dec 23, 2016 Time patient seen: 10:30 Reason for Hospitalization: General Complaint Present Illness HPI 76 y/old male with PMH of DM, HTN, PVD, R AKA presented with a nonhealing wound on his right thigh Patient underwent flap closure of a chronic right ischial pressure ulcer on 12/05. He was d/c'd to SNF on a [facility] Bed after a 9 day hospitalization on the same bed. Upon d/c from the hospital his flap was healing well. He was taken of the Clinitron bed on 12/21 and placed on a different type of mattress (patient states it was a foam mattress) On 12/22/16paient began having drainage from the medial lower flap incision located on the distal medial posterior thigh along with pain . Pain at 7/10 , aching, constant. workup in ED revealed leukocytosis -16.2 anemia -10.4/32.3 renal insufficiency -27/2.1 UA with evidence of UTI R femur X ray revealed soft tissue gas within the proximal thigh, raising concern for infection with a gas-forming organism. CXR with left pleural fluid vs pleural thickening, otehrwise no acute process patient was admitted for further management this am he was complaining of chest pain and was transferred to [facility] for further management Allergies: Coded Allergies: VANCOMYCIN (Verified Allergy, Unknown, 12/22/16) SIMVASTATIN (Verified Adverse Reaction, Severe, MUSCLE WEAKNESS, 11/27/16) Medication History Scheduled Ascorbic Acid* (Vitamin C*), 500 MG ORAL DAILY, (Reported) Aspirin* (Aspir 81*), 81 MG ORAL DAILY, (Reported) Atenolol* (Tenormin*), 25 MG ORAL DAILY, (Reported) Benazepril Hcl* (Benazepril Hcl*), 40 MG ORAL DAILY, (Reported) Ferrous Sulfate* (Ferrous Sulfate*), 325 MG ORAL DAILY, (Reported) Folic Acid* (Folic Acid*), 1 MG ORAL DAILY, (Reported) Gabapentin* (Gabapentin*), 300 MG ORAL BEDTIME, (Reported) Indapamide* (Indapamide*), 2.5 MG ORAL DAILY, (Reported) Lovastatin (Lovastatin), 20 MG ORAL BEDTIME, (Reported) Multivitamin With Minerals (Multivitamins With Minerals*), 1 TAB ORAL DAILY, ( Reported) Pioglitazone Hcl* (Actos*), 40 MG ORAL DAILY, (Reported) Scheduled PRN Acetaminophen With Codeine (T#3) (Tylenol #3 Tab*), 1 TAB ORAL Q4H PRN for For Pain, (Reported) Discontinued Medications Esomeprazole Magnesium (Nexium), 40 MG ORAL DAILY, (Reported) Discontinued Reason: Pt stopped taking med Multivitamins* (Multivitamins*), 1 TAB ORAL DAILY, (Reported) Discontinued Reason: Prescription changed Patient History History Provided By: Patient Healthcare decision maker Resuscitation status Advanced Directive on File Past Medical/Surgical History Past Medical/Surgical History: (1) Hypertension (2) Diabetes mellitus (3) Decubital ulcer Review of Systems Constitutional: Reports: weakness Eye: Reports: no symptoms ENT: Reports: no symptoms Respiratory: Reports: no symptoms Cardiovascular: Reports: other - HTN, hyperlipidemia, PVD Gastrointestinal: Reports: constipation Genitourinary: Reports: frequency Musculoskeletal: Reports: other - R AKA Skin: Reports: see HPI Psychiatric: Reports: no symptoms Endocrine: Reports: other - diabetes Hematologic/Lymphatic: Reports: other - anemia Physical Exam General Appearance: no apparent distress, alert, other - A/A/O x 4 AA male Lines, tubes and drains: peripheral HEENT: normocephalic, atraumatic, anicteric, mucous membranes moist Neck: non-tender, supple Respiratory/Chest: lungs clear, no respiratory distress, no accessory muscle use Cardiovascular/Chest: normal rate, regular rhythm Abdomen: normal bowel sounds, non tender, soft Extremities: other - R AKA Skin Exam: warm/dry, other - R thigh wound Neurologic: abnormal gait, alert, oriented x 3, responsive Last 24 Hour Vital Signs Date Time Temp Pulse Resp B/P (MAP) Pulse Ox O2 Delivery O2 Flow Rate FiO2 12/23/16 08:26 74 16 Nasal Cannula 2.0 28 12/23/16 08:05 97.2 75 20 104/59 100 Nasal Cannula 2.0 12/23/16 07:25 Nasal Cannula 2.0 21 12/23/16 07:25 98 Nasal Cannula 2.0 28 12/23/16 04:00 97.5 79 18 105/58 100 Nasal Cannula 2.0 12/23/16 00:00 97.7 70 19 95/55 97 Room Air 12/22/16 20:00 97.2 70 19 111/57 100 Room Air 12/22/16 18:45 97.6 73 18 120/58 99 Room Air 12/22/16 18:45 73 18 120/58 99 Room Air 12/22/16 17:30 73 15 111/62 99 Room Air 12/22/16 15:10 97.6 73 19 103/68 100 Room Air 12/22/16 14:49 97.7 66 18 116/58 97 Room Air Laboratory Tests Test 12/22/16 15:34 12/22/16 16:50 12/23/16 04:55 12/23/16 11:30 White Blood Count 16.2 K/UL (4.8-10.8) H 13.2 K/UL (4.8-10.8) H Red Blood Count 3.88 M/UL (4.70-6.10) L 3.94 M/UL (4.70-6.10) L Hemoglobin 10.4 G/DL (14.2-18.0) L 10.4 G/DL (14.2-18.0) L Hematocrit 32.3 % (42.0-52.0) L 33.0 % (42.0-52.0) L Mean Corpuscular Volume 83 FL (80-99) 84 FL (80-99) Mean Corpuscular Hemoglobin 26.9 PG (27.0-31.0) L 26.3 PG (27.0-31.0) L Mean Corpuscular Hemoglobin Concent 32.3 G/DL (32.0-36.0) 31.3 G/DL (32.0-36.0) L Red Cell Distribution Width 15.6 % (11.6-14.8) H 16.3 % (11.6-14.8) H Platelet Count 229 K/UL (150-450) 242 K/UL (150-450) Mean Platelet Volume 7.2 FL (6.5-10.1) 7.1 FL (6.5-10.1) Neutrophils (%) (Auto) % (45.0-75.0) % (45.0-75.0) Lymphocytes (%) (Auto) % (20.0-45.0) % (20.0-45.0) Monocytes (%) (Auto) % (1.0-10.0) % (1.0-10.0) Eosinophils (%) (Auto) % (0.0-3.0) % (0.0-3.0) Basophils (%) (Auto) % (0.0-2.0) % (0.0-2.0) Differential Total Cells Counted 100 100 Neutrophils % (Manual) 71 % (45-75) 90 % (45-75) H Lymphocytes % (Manual) 20 % (20-45) 2 % (20-45) L Monocytes % (Manual) 6 % (1-10) 6 % (1-10) Eosinophils % (Manual) 0 % (0-3) 2 % (0-3) Basophils % (Manual) 0 % (0-2) 0 % (0-2) Band Neutrophils 3 % (0-8) 0 % (0-8) Platelet Estimate Adequate Adequate Platelet Morphology Normal Normal Hypochromasia 1+ Anisocytosis 1+ Erythrocyte Sedimentation Rate 66 MM/HR (0-20) H Prothrombin Time 12.8 SEC (9.30-11.50) H Prothromb Time International Ratio 1.2 (0.9-1.1) H Activated Partial Thromboplast Time 32 SEC (23-33) Urine Color Yellow Urine Appearance Slightly cloudy Urine pH 6 (4.5-8.0) Urine Specific [place] 1.010 (1.005-1.035) Urine Protein 3+ (NEGATIVE) H Urine Glucose (UA) Negative (NEGATIVE) Urine Ketones Negative (NEGATIVE) Urine Occult Blood 5+ (NEGATIVE) H Urine Nitrite Negative (NEGATIVE) Urine Bilirubin Negative (NEGATIVE) Urine Urobilinogen 1 MG/DL (0.0-1.0) H Urine Leukocyte Esterase 3+ (NEGATIVE) H Urine RBC 10-15 /HPF (0 - 0) H Urine WBC 5-10 /HPF (0 - 0) H Urine Squamous Epithelial Cells None /LPF (NONE/OCC) Urine Amorphous Sediment Moderate /LPF (NONE) H Urine Bacteria Moderate /HPF (NONE) H Urine Yeast Few /HPF (NONE) H Sodium Level 128 MMOL/L (136-145) L 133 MMOL/L (136-145) L Potassium Level 3.7 MMOL/L (3.5-5.1) 3.1 MMOL/L (3.5-5.1) L Chloride Level 93 MMOL/L (98-107) L 98 MMOL/L (98-107) Carbon Dioxide Level 28 MMOL/L (21-32) 26 MMOL/L (21-32) Anion Gap 7 mmol/L (5-15) 9 mmol/L (5-15) Blood Urea Nitrogen 27 mg/dL (7-18) H 29 mg/dL (7-18) H Creatinine 2.1 MG/DL (0.55-1.30) H 1.7 MG/DL (0.55-1.30) H Estimat Glomerular Filtration Rate mL/min (>60) mL/min (>60) Glucose Level 156 MG/DL (74-106) H 97 MG/DL (74-106) Calcium Level 8.5 MG/DL (8.5-10.1) 8.7 MG/DL (8.5-10.1) Total Bilirubin 0.4 MG/DL (0.2-1.0) 0.3 MG/DL (0.2-1.0) Aspartate Amino Transf (AST/SGOT) 26 U/L (15-37) 21 U/L (15-37) Alanine Aminotransferase (ALT/SGPT) 16 U/L (12-78) 12 U/L (12-78) Alkaline Phosphatase 107 U/L (46-116) 98 U/L (46-116) Total Creatine Kinase 161 U/L (26-308) Troponin I 0.007 ng/mL (0.000-0.056) Pending Pro-B-Type Natriuretic Peptide 4211 pg/mL (0-125) H Total Protein 6.6 G/DL (6.4-8.2) 6.5 G/DL (6.4-8.2) Albumin 2.2 G/DL (3.4-5.0) L 2.1 G/DL (3.4-5.0) L Globulin 4.4 g/dL 4.4 g/dL Albumin/Globulin Ratio 0.5 (1.0-2.7) L 0.5 (1.0-2.7) L Lactic Acid Level 1.20 mmol/L (0.66-2.22) Hemoglobin A1c 6.3 % (4.3-6.0) H Triglycerides Level 115 MG/DL (0-200) Cholesterol Level 103 MG/DL (< 200) LDL Cholesterol 41 mg/dL (<100) HDL Cholesterol 11 MG/DL (40-60) L Cholesterol/HDL Ratio 9.4 (3.3-4.4) H Random Vancomycin Level < 2.0 ug/mL Microbiology Date/Time Source Procedure Growth Status 12/22/16 16:00 Leg Right Gram Stain - Final Resulted 12/22/16 16:00 Wound Culture - Preliminary Gram Negative Bacillus 1 Resulted Height (Feet): 6 Height (Inches): 4.00 Weight (Pounds): 192 Medications Current Medications Medications (Trade) Dose Ordered Sig/Venkata Route PRN Reason Start Time Stop Time Status Last Admin Dose Admin Acetaminophen (Tylenol) 650 mg Q4H PRN ORAL fever (temp > 100.5 F) 12/23/16 10:45 01/21/17 18:44 Albuterol/ Ipratropium (Albuterol/ Ipratropium) 3 ml Q4H PRN HHN Shortness of Breath 12/23/16 10:45 12/27/16 18:44 Ascorbic Acid (Vitamin C) 500 mg DAILY ORAL 12/23/16 09:15 01/22/17 08:59 12/23/16 09:34 Atenolol (Tenormin) 25 mg DAILY ORAL 12/23/16 09:15 01/22/17 08:59 Cefepime HCl 2 gm/ Sodium Chloride 110 ml @ 220 mls/hr Q24H IV 12/24/16 00:00 12/30/16 00:00 Dextrose (Dextrose 50%) STAT PRN IV Hypoglycemia 12/23/16 18:45 01/21/17 18:44 Gabapentin (Neurontin) 300 mg BEDTIME ORAL 12/23/16 21:00 01/21/17 20:59 Heparin Sodium (Porcine) (Heparin 5000 units/ml) 5,000 units EVERY 12 HOURS SUBQ 12/23/16 09:15 01/21/17 20:59 Insulin Aspart (NovoLOG) BEFORE MEALS AND HS SUBQ 12/23/16 11:30 01/21/17 20:59 Morphine Sulfate (Morphine Sulfate) 4 mg Q4H PRN IVP For Pain 12/23/16 12:15 12/30/16 04:14 Nitroglycerin (Ntg) 0.4 mg Q5M PRN SL Prn Chest Pain 12/23/16 09:15 01/21/17 18:44 Ondansetron HCl (Zofran) 4 mg Q6H PRN IVP Nausea & Vomiting 12/23/16 12:45 01/21/17 18:44 Polyethylene Glycol (Miralax) 17 gm DAILYPRN PRN ORAL Constipation 12/23/16 18:45 01/21/17 18:44 Sodium Chloride 1,000 ml @ 50 mls/hr Q20H IV 12/23/16 22:15 01/22/17 22:14 Temazepam (Restoril) 15 mg HSPRN PRN ORAL Insomnia 12/23/16 18:45 12/29/16 18:44 Assessment/Plan Assessment/Plan ASSESSMENT chest pin, r/o ACS probably sepsis nonhealing R ischial decub ulcer with possible gas gangrene infection s/p recent flap closure hypotension UTI DM PVD R AKA anemia hx of HTN MACEY on CRI possible protein calorie malnutrition e/lyte imbalance ( hypo K, hypo Na) PLAN OF CARE tele serial troponin ECG no acute ischemic changes no acute ischemic changes ECHO lipid panel stable cardio eval pain management plastic surgery eval wound care as per surgeon recommendations abx ID follows wound cx + GNB nephro eval monitor renal parameters, lytes, avoid nephrotoxic renal US replace lytes as needed ( today replace K and check Mg) BP management with BB and optimize further as needed BS management with SS of insulin, check HgA1c -6.3 at goal DVT prophylaxis bowel regimen venous Duplex dietary eval case discussed and evaluated by supervising physician Sarah Zuleta NP (Vanchtein) Dec 23, 2016 11:30
[2016-12-23 11:43] VITALS: BP 101/47
[2016-12-23] MEDS ORDERED: KCl 10% 40mEq/30ml liquid NG ONE (14:00)
--- NOTE | 2016-12-23 14:37 | Cardiology Report ---
APPROVED REPORT EKG Measurement Heart [id number] ND [id number] Normal sinus rhythm Left anterior fascicular block Abnormal ECG
--- NOTE | 2016-12-23 14:37 | Cardiology Report ---
APPROVED REPORT EKG Measurement Heart [id number] CA 148P59 [id number] Normal sinus rhythm Left anterior fascicular block Abnormal ECG
--- NOTE | 2016-12-23 14:37 | Cardiology Report ---
APPROVED REPORT EKG Measurement Heart [id number] TN 148P59 [id number] Normal sinus rhythm Left anterior fascicular block Abnormal ECG
--- NOTE | 2016-12-23 14:41 | Cardiology Report ---
APPROVED REPORT EKG Measurement Heart [id number] ID [id number] Normal sinus rhythm Left anterior fascicular block Abnormal ECG
--- NOTE | 2016-12-23 14:41 | Cardiology Report ---
APPROVED REPORT EKG Measurement Heart [id number] SC 158P76 [id number] Normal sinus rhythm Left anterior fascicular block Abnormal ECG
--- NOTE | 2016-12-23 14:41 | Cardiology Report ---
APPROVED REPORT EKG Measurement Heart [id number] [place] 158P76 [id number] Normal sinus rhythm Left anterior fascicular block Abnormal ECG
[2016-12-23 15:38] VITALS: BP 97/53
--- NOTE | 2016-12-23 16:59 | Consultation ---
Consult Note Consult Note ID DIC # [id number] HARSHAL PEPPER M.D. Dec 23, 2016 16:59
--- NOTE | 2016-12-23 16:59 | Consultation ---
Consult Note Consult Note ID DIC # [id number] HARSHAL PEPPER M.D. Dec 23, 2016 16:59
--- NOTE | 2016-12-23 16:59 | Consultation ---
Consult Note Consult Note ID DIC # [id number] HARSHAL PEPPER M.D. Dec 23, 2016 16:59
[2016-12-23] MEDS: DAPTOmycin 350 MG in NS 55 ML IV SCH (18:30)
[2016-12-23] MEDS ORDERED: Miralax 17gm pkt ORAL PRN (18:45)
[2016-12-23] MEDS ORDERED: Norco 5mg/325mg tab ORAL PRN (19:15)
[2016-12-23 20:00] VITALS: BP 102/55
[2016-12-23] MEDS: Morphine Sulfate 4mg/ml Inj IVP PRN (20:39)
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
[2016-12-24] VITALS: BP 105/57
[2016-12-24] MEDS: Cefepime HCl 2 GM in NS 110 ML IV SCH (00:15)
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
[2016-12-24 04:00] VITALS: BP 95/47
[2016-12-24 07:00] LABS: BASOPHILS % (AUTO) 0.3 % (0.0-2.0); EOSINOPHILS % (AUTO) 3.8 % (0.0-3.0); HEMATOCRIT 30.3 % (42.0-52.0); HEMOGLOBIN 9.6 G/DL (14.2-18.0); LYMPHOCYTES % (AUTO) 11.4 % (20.0-45.0); MEAN CORPUSCULAR VOLUME 85 FL (80-99); MONOCYTES % (AUTO) 6.8 % (1.0-10.0); NEUTROPHILS % (AUTO) 77.7 % (45.0-75.0); PLATELET COUNT 243 K/UL (150-450); RED BLOOD COUNT 3.58 M/UL (4.70-6.10); RED CELL DISTRIBUTION WIDTH 16.1 % (11.6-14.8)
[2016-12-24] MEDS: NovoLOG Insulin Flexpen SUBQ SCH ×4 (07:03→21:26)
[2016-12-24 07:24] LABS: ANION GAP 10 mmol/L (5-15); BLOOD UREA NITROGEN 26 mg/dL (7-18); CALCIUM 8.1 MG/DL (8.5-10.1); CARBON DIOXIDE 26 MMOL/L (21-32); CHLORIDE 103 MMOL/L (98-107); CREATININE 1.5 MG/DL (0.55-1.30); POTASSIUM 3.6 MMOL/L (3.5-5.1); SODIUM 139 MMOL/L (136-145)
[2016-12-24 08:54] VITALS: BP 103/50
[2016-12-24] MEDS: Heparin 5000 units/ml inj SUBQ SCH ×2 (09:00→21:00)
[2016-12-24] MEDS: Atenolol 25mg tab ORAL SCH (09:00)
[2016-12-24] MEDS: Ascorbic Acid 500mg tab ORAL SCH (09:07)
[2016-12-24] MEDS ORDERED: NS 500ML IV ONE (09:16)
[2016-12-24] MEDS ORDERED: Tubing IV Secondary IV ONE (09:16)
[2016-12-24] MEDS: Morphine Sulfate 4mg/ml Inj IVP PRN ×2 (09:24→21:23)
--- NOTE | 2016-12-24 10:11 | Infectious Diseases Prog Note ---
Assessment/Plan Assessment/Plan A; Infection of R hip flap, gas in tissue UTI Acute renal failure DM Anemia P: continue Cefepime & Daptomycin will f/u cultures Subjective ROS Limited/Unobtainable: No Constitutional: Reports: anorexia Respiratory: Reports: no symptoms Gastrointestinal/Abdominal: Reports: no symptoms Genitourinary: Reports: no symptoms Skin: Reports: other - disharge from wound Allergies: Coded Allergies: VANCOMYCIN (Verified Allergy, Unknown, 12/22/16) SIMVASTATIN (Verified Adverse Reaction, Severe, MUSCLE WEAKNESS, 11/27/16) Objective Vital Signs Last 24 Hour Vital Signs Date Time Temp Pulse Resp B/P (MAP) Pulse Ox O2 Delivery O2 Flow Rate FiO2 12/24/16 09:00 75 103/50 12/24/16 08:54 97.9 89 18 103/50 100 Room Air 12/24/16 08:05 78 16 Nasal Cannula 2.0 28 12/24/16 08:05 Nasal Cannula 2.0 28 12/24/16 08:05 96 Nasal Cannula 2.0 28 12/24/16 04:00 73 12/24/16 04:00 97.5 72 20 95/47 97 Room Air 2.0 28 12/24/16 00:00 84 18 105/57 97 12/24/16 00:00 77 12/23/16 20:00 97.9 85 18 102/55 99 Room Air 2.0 28 12/23/16 20:00 86 12/23/16 19:30 82 16 Nasal Cannula 2.0 28 12/23/16 19:30 94 Nasal Cannula 2.0 28 12/23/16 19:30 Nasal Cannula 2.0 28 12/23/16 15:38 97.9 78 20 97/53 99 Room Air 12/23/16 11:43 97.7 80 20 101/47 97 Room Air Height (Feet): 6 Height (Inches): 4.00 Weight (Pounds): 192 General Appearance: no acute distress HEENT: mucous membranes moist Respiratory/Chest: lungs clear Cardiovascular: normal rate Abdomen: soft, non tender Skin: other - skin flap in R hip, R BKA Neurologic/Psychiatric: alert, oriented x 3, responsive Musculoskeletal: atrophy Microbiology Date/Time Source Procedure Growth Status 12/22/16 15:34 Urine,Clean Catch Urine Culture - Preliminary Gram Negative Bacillus 1 Resulted 12/22/16 16:00 Leg Right Gram Stain - Final Resulted 12/22/16 16:00 Wound Culture - Preliminary Gram Negative Bacillus 1 Resulted Laboratory Tests Test 12/23/16 11:30 12/23/16 16:00 12/23/16 21:45 12/24/16 06:20 Magnesium Level 2.1 MG/DL (1.8-2.4) Troponin I 0.001 ng/mL (0.000-0.056) 0.004 ng/mL (0.000-0.056) 0.003 ng/mL (0.000-0.056) 0.005 ng/mL (0.000-0.056) D-Dimer 1.54 mg/L FEU (0.00-0.49) H White Blood Count 8.0 K/UL (4.8-10.8) Red Blood Count 3.58 M/UL (4.70-6.10) L Hemoglobin 9.6 G/DL (14.2-18.0) L Hematocrit 30.3 % (42.0-52.0) L Mean Corpuscular Volume 85 FL (80-99) Mean Corpuscular Hemoglobin 26.8 PG (27.0-31.0) L Mean Corpuscular Hemoglobin Concent 31.7 G/DL (32.0-36.0) L Red Cell Distribution Width 16.1 % (11.6-14.8) H Platelet Count 243 K/UL (150-450) Mean Platelet Volume 7.0 FL (6.5-10.1) Neutrophils (%) (Auto) 77.7 % (45.0-75.0) H Lymphocytes (%) (Auto) 11.4 % (20.0-45.0) L Monocytes (%) (Auto) 6.8 % (1.0-10.0) Eosinophils (%) (Auto) 3.8 % (0.0-3.0) H Basophils (%) (Auto) 0.3 % (0.0-2.0) Sodium Level 139 MMOL/L (136-145) Potassium Level 3.6 MMOL/L (3.5-5.1) Chloride Level 103 MMOL/L (98-107) Carbon Dioxide Level 26 MMOL/L (21-32) Anion Gap 10 mmol/L (5-15) Blood Urea Nitrogen 26 mg/dL (7-18) H Creatinine 1.5 MG/DL (0.55-1.30) H Estimat Glomerular Filtration Rate mL/min (>60) Glucose Level 107 MG/DL (74-106) H Calcium Level 8.1 MG/DL (8.5-10.1) L Current Medications Medications (Trade) Dose Ordered Sig/Venkata Route PRN Reason Start Time Stop Time Status Last Admin Dose Admin Acetaminophen (Tylenol) 650 mg Q4H PRN ORAL Fever/Headache/Mild Pain 12/23/16 18:00 01/22/17 17:59 Acetaminophen/ Hydrocodone Bitart (Shirley 5/325) 1 tab Q6H PRN ORAL Severe Pain (Pain Scale 7-10) 12/23/16 19:15 12/30/16 19:14 Albuterol/ Ipratropium (Albuterol/ Ipratropium) 3 ml Q4H PRN HHN Shortness of Breath 12/23/16 10:45 12/27/16 18:44 Ascorbic Acid (Vitamin C) 500 mg DAILY ORAL 12/23/16 09:15 01/22/17 08:59 12/24/16 09:07 Atenolol (Tenormin) 25 mg DAILY ORAL 12/23/16 09:15 01/22/17 08:59 Cefepime HCl 2 gm/ Sodium Chloride 110 ml @ 220 mls/hr Q24H IV 12/24/16 00:00 12/30/16 00:00 12/24/16 00:15 Daptomycin 350 mg/ Sodium Chloride 55 ml @ 100 mls/hr Q24H IV 12/23/16 18:30 12/30/16 18:29 Dextrose (Dextrose 50%) STAT PRN IV Hypoglycemia 12/23/16 18:45 01/21/17 18:44 Gabapentin (Neurontin) 300 mg BEDTIME ORAL 12/23/16 21:00 01/21/17 20:59 12/23/16 20:39 Heparin Sodium (Porcine) (Heparin 5000 units/ml) 5,000 units EVERY 12 HOURS SUBQ 12/23/16 09:15 01/21/17 20:59 12/23/16 20:53 Insulin Aspart (NovoLOG) BEFORE MEALS AND HS SUBQ 12/23/16 11:30 01/21/17 20:59 12/24/16 07:03 Morphine Sulfate (Morphine Sulfate) 4 mg Q4H PRN IVP For Breakthrough Pain 12/23/16 19:15 12/30/16 19:14 12/24/16 09:24 Nitroglycerin (Ntg) 0.4 mg Q5M PRN SL Prn Chest Pain 12/23/16 09:15 01/21/17 18:44 Ondansetron HCl (Zofran) 4 mg Q6H PRN IVP Nausea & Vomiting 12/23/16 12:45 01/21/17 18:44 Polyethylene Glycol (Miralax) 17 gm DAILYPRN PRN ORAL Constipation 12/23/16 18:45 01/21/17 18:44 Sodium Chloride 1,000 ml @ 75 mls/hr [id number] IV 12/23/16 16:00 01/22/17 15:59 12/24/16 06:49 Temazepam (Restoril) 15 mg HSPRN PRN ORAL Insomnia 12/23/16 18:45 12/29/16 18:44 DEBBIE WOOD Dec 24, 2016 10:11
--- NOTE | 2016-12-24 11:17 | Pulmonology Progress Note ---
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 gangrene infection s/p recent flap closure hypotension bacteriuria/ UTI with GNB DM PVD R AKA anemia hx of HTN MACEY on CRI mild pulmonary HTn possible protein calorie malnutrition e/lyte imbalance ( hypo K, hypo Na) PLAN OF CARE tele serial troponin negative ECG no acute ischemic changes no acute ischemic changes thus ruled out for acute DC ECHO with EF 55% and RVSP of 41 c/w mild pulmonary HTN lipid panel stable cardio follows D dimer elevated venous Duplex done, no results yet, doubt acute findings, otherwise will get a call pain management plastic surgery follows wound care as per surgeon recommendations CT R thigh for further evaluation of wound abx ID follows wound cx + GNB urine cx + GNB nephro eval monitor renal parameters, lytes, avoid nephrotoxic renal US replace lytes as needed creat trending down BP management with BB and optimize further as needed BS management with SS of insulin, check HgA1c -6.3 at goal DVT prophylaxis bowel regimen venous Duplex dietary eval case discussed and evaluated by supervising physician Subjective Allergies: Coded Allergies: VANCOMYCIN (Verified Allergy, Unknown, 12/22/16) SIMVASTATIN (Verified Adverse Reaction, Severe, MUSCLE WEAKNESS, 11/27/16) Subjective leukocytosis resolved afebrile no chest pain, intermittent SOB on RA pulse oximetry stable Objective Last 24 Hour Vital Signs Date Time Temp Pulse Resp B/P (MAP) Pulse Ox O2 Delivery O2 Flow Rate FiO2 12/24/16 09:00 75 103/50 12/24/16 08:54 97.9 89 18 103/50 100 Room Air 12/24/16 08:05 78 16 Nasal Cannula 2.0 28 12/24/16 08:05 Nasal Cannula 2.0 28 12/24/16 08:05 96 Nasal Cannula 2.0 28 12/24/16 08:00 84 12/24/16 04:00 73 12/24/16 04:00 97.5 72 20 95/47 97 Room Air 2.0 28 12/24/16 00:00 84 18 105/57 97 12/24/16 00:00 77 12/23/16 20:00 97.9 85 18 102/55 99 Room Air 2.0 28 12/23/16 20:00 86 12/23/16 19:30 82 16 Nasal Cannula 2.0 28 12/23/16 19:30 94 Nasal Cannula 2.0 28 12/23/16 19:30 Nasal Cannula 2.0 28 12/23/16 15:38 97.9 78 20 97/53 99 Room Air 12/23/16 11:43 97.7 80 20 101/47 97 Room Air Objective General Appearance: no apparent distress, alert, A/A/O x 4 AA male Lines, tubes and drains: peripheral HEENT: normocephalic, atraumatic, anicteric, mucous membranes moist Neck: non-tender, supple Respiratory/Chest: lungs clear, no respiratory distress, no accessory muscle use Cardiovascular/Chest: normal rate, regular rhythm Abdomen: normal bowel sounds, non tender, soft Extremities: other - R AKA Skin Exam: warm/dry, R thigh wound Neurologic: abnormal gait, alert, oriented x 3, responsive Microbiology Date/Time Source Procedure Growth Status 12/22/16 15:34 Urine,Clean Catch Urine Culture - Preliminary Gram Negative Bacillus 1 Resulted 12/22/16 16:00 Leg Right Gram Stain - Final Resulted 12/22/16 16:00 Wound Culture - Preliminary Gram Negative Bacillus 1 Resulted Laboratory Tests 12/23/16 11:30: Magnesium Level 2.1, Troponin I 0.001 12/23/16 16:00: Troponin I 0.004 12/23/16 21:45: Troponin I 0.003, D-Dimer 1.54H 12/24/16 06:20: Troponin I 0.005, White Blood Count 8.0, Red Blood Count 3.58L, Hemoglobin 9.6L , Hematocrit 30.3L, Mean Corpuscular Volume 85, Mean Corpuscular Hemoglobin 26.8L, Mean Corpuscular Hemoglobin Concent 31.7L, Red Cell Distribution Width 16.1H, Platelet Count 243, Mean Platelet Volume 7.0, Neutrophils (%) (Auto) 77.7H, Lymphocytes (%) (Auto) 11.4L, Monocytes (%) (Auto) 6.8, Eosinophils (%) ( Auto) 3.8H, Basophils (%) (Auto) 0.3, Sodium Level 139, Potassium Level 3.6, Chloride Level 103, Carbon Dioxide Level 26, Anion Gap 10, Blood Urea Nitrogen 26H, Creatinine 1.5H, Estimat Glomerular Filtration Rate , Glucose Level 107H, Calcium Level 8.1L Current Medications Medications (Trade) Dose Ordered Sig/Venkata Route PRN Reason Start Time Stop Time Status Last Admin Dose Admin Acetaminophen (Tylenol) 650 mg Q4H PRN ORAL Fever/Headache/Mild Pain 12/23/16 18:00 01/22/17 17:59 Acetaminophen/ Hydrocodone Bitart ([place] 5/325) 1 tab Q6H PRN ORAL Severe Pain (Pain Scale 7-10) 12/23/16 19:15 12/30/16 19:14 Albuterol/ Ipratropium (Albuterol/ Ipratropium) 3 ml Q4H PRN HHN Shortness of Breath 12/23/16 10:45 12/27/16 18:44 Ascorbic Acid (Vitamin C) 500 mg DAILY ORAL 12/23/16 09:15 01/22/17 08:59 12/24/16 09:07 Atenolol (Tenormin) 25 mg DAILY ORAL 12/23/16 09:15 01/22/17 08:59 Cefepime HCl 2 gm/ Sodium Chloride 110 ml @ 220 mls/hr Q24H IV 12/24/16 00:00 12/30/16 00:00 12/24/16 00:15 Daptomycin 350 mg/ Sodium Chloride 55 ml @ 100 mls/hr Q24H IV 12/23/16 18:30 12/30/16 18:29 Dextrose (Dextrose 50%) STAT PRN IV Hypoglycemia 12/23/16 18:45 01/21/17 18:44 Gabapentin (Neurontin) 300 mg BEDTIME ORAL 12/23/16 21:00 01/21/17 20:59 12/23/16 20:39 Heparin Sodium (Porcine) (Heparin 5000 units/ml) 5,000 units EVERY 12 HOURS SUBQ 12/23/16 09:15 01/21/17 20:59 12/23/16 20:53 Insulin Aspart (NovoLOG) BEFORE MEALS AND HS SUBQ 12/23/16 11:30 01/21/17 20:59 12/24/16 07:03 Morphine Sulfate (Morphine Sulfate) 4 mg Q4H PRN IVP For Breakthrough Pain 12/23/16 19:15 12/30/16 19:14 12/24/16 09:24 Nitroglycerin (Ntg) 0.4 mg Q5M PRN SL Prn Chest Pain 12/23/16 09:15 01/21/17 18:44 Ondansetron HCl (Zofran) 4 mg Q6H PRN IVP Nausea & Vomiting 12/23/16 12:45 01/21/17 18:44 Polyethylene Glycol (Miralax) 17 gm DAILYPRN PRN ORAL Constipation 12/23/16 18:45 01/21/17 18:44 Sodium Chloride 1,000 ml @ 75 mls/hr [id number] IV 12/23/16 16:00 01/22/17 15:59 12/24/16 06:49 Temazepam (Restoril) 15 mg HSPRN PRN ORAL Insomnia 12/23/16 18:45 12/29/16 18:44 Song RodriguezSarah [email or web address] NP Dec 24, 2016 11:17
[2016-12-24 11:53] VITALS: BP 109/59
--- NOTE | 2016-12-24 14:32 | Cardiology Progress Note ---
Assessment/Plan Assessment/Plan the patient has atypical chest pain because of multiple coronary risk factors, will go ahead with stress nuclear perfusion test tomorrow Subjective Subjective The patient is resting in bed, reports having left sided chest pressure on and off, the pressure is mild Objective Last 24 Hour Vital Signs Date Time Temp Pulse Resp B/P (MAP) Pulse Ox O2 Delivery O2 Flow Rate FiO2 12/24/16 11:53 97.7 79 18 109/59 97 Room Air 12/24/16 09:00 75 103/50 12/24/16 08:54 97.9 89 18 103/50 100 Room Air 12/24/16 08:05 78 16 Nasal Cannula 2.0 28 12/24/16 08:05 Nasal Cannula 2.0 28 12/24/16 08:05 96 Nasal Cannula 2.0 28 12/24/16 08:00 84 12/24/16 04:00 73 12/24/16 04:00 97.5 72 20 95/47 97 Room Air 2.0 28 12/24/16 00:00 84 18 105/57 97 12/24/16 00:00 77 12/23/16 20:00 97.9 85 18 102/55 99 Room Air 2.0 28 12/23/16 20:00 86 12/23/16 19:30 82 16 Nasal Cannula 2.0 28 12/23/16 19:30 94 Nasal Cannula 2.0 28 12/23/16 19:30 Nasal Cannula 2.0 28 12/23/16 15:38 97.9 78 20 97/53 99 Room Air General Appearance: no apparent distress EENT: PERRL/EOMI Neck: normal alignment Rhythm: NSR Cardiovascular: normal rate Respiratory/Chest: crackles/rales Abdomen: soft Extremities: other - BKA on the left, right leg is not swallen Intake and Output 12/24/16 12/25/16 19:00 07:00 Intake Total 240 ml Balance 240 ml Intake Oral 240 ml Laboratory Tests Test 12/23/16 16:00 12/23/16 21:45 12/24/16 06:20 Troponin I 0.004 ng/mL (0.000-0.056) 0.003 ng/mL (0.000-0.056) 0.005 ng/mL (0.000-0.056) D-Dimer 1.54 mg/L FEU (0.00-0.49) H White Blood Count 8.0 K/UL (4.8-10.8) Red Blood Count 3.58 M/UL (4.70-6.10) L Hemoglobin 9.6 G/DL (14.2-18.0) L Hematocrit 30.3 % (42.0-52.0) L Mean Corpuscular Volume 85 FL (80-99) Mean Corpuscular Hemoglobin 26.8 PG (27.0-31.0) L Mean Corpuscular Hemoglobin Concent 31.7 G/DL (32.0-36.0) L Red Cell Distribution Width 16.1 % (11.6-14.8) H Platelet Count 243 K/UL (150-450) Mean Platelet Volume 7.0 FL (6.5-10.1) Neutrophils (%) (Auto) 77.7 % (45.0-75.0) H Lymphocytes (%) (Auto) 11.4 % (20.0-45.0) L Monocytes (%) (Auto) 6.8 % (1.0-10.0) Eosinophils (%) (Auto) 3.8 % (0.0-3.0) H Basophils (%) (Auto) 0.3 % (0.0-2.0) Sodium Level 139 MMOL/L (136-145) Potassium Level 3.6 MMOL/L (3.5-5.1) Chloride Level 103 MMOL/L (98-107) Carbon Dioxide Level 26 MMOL/L (21-32) Anion Gap 10 mmol/L (5-15) Blood Urea Nitrogen 26 mg/dL (7-18) H Creatinine 1.5 MG/DL (0.55-1.30) H Estimat Glomerular Filtration Rate mL/min (>60) Glucose Level 107 MG/DL (74-106) H Calcium Level 8.1 MG/DL (8.5-10.1) L Microbiology Date/Time Source Procedure Growth Status 12/22/16 15:34 Urine,Clean Catch Urine Culture - Preliminary Gram Negative Bacillus 1 Resulted 12/22/16 16:00 Leg Right Gram Stain - Final Resulted 12/22/16 16:00 Wound Culture - Preliminary Escherichia Coli Gram Negative Bacillus 2 Resulted ANGIE WILKINSON Dec 24, 2016 14:32
--- NOTE | 2016-12-24 15:10 | Wound Nurse Progress Note ---
Wound RN Progress Note Wound Consult Pt is under the care of Dr Sanabria. Follow MD's order. YOAN MCMANUS RN Dec 24, 2016 15:10
--- NOTE | 2016-12-24 15:10 | Wound Nurse Progress Note ---
Wound RN Progress Note Wound Consult Pt is under the care of Dr Sanabria. Follow MD's order. YOAN MCMANUS RN Dec 24, 2016 15:10
--- NOTE | 2016-12-24 15:10 | Wound Nurse Progress Note ---
Wound RN Progress Note Wound Consult Pt is under the care of Dr Sanabria. Follow MD's order. YOAN MCMANUS RN Dec 24, 2016 15:10
[2016-12-24 16:00] VITALS: BP 111/50
[2016-12-24] MEDS: DAPTOmycin 350 MG in NS 55 ML IV SCH (17:09)
[2016-12-24 20:00] VITALS: BP 97/37
[2016-12-25] VITALS: BP 120/80
[2016-12-25] MEDS: Cefepime HCl 2 GM in NS 110 ML IV SCH ×2 (00:31→23:44)
[2016-12-25] MEDS: Morphine Sulfate 4mg/ml Inj IVP PRN ×4 (01:31→21:25)
[2016-12-25] MEDS: NovoLOG Insulin Flexpen SUBQ SCH ×4 (06:30→21:00)
[2016-12-25 08:06] LABS: BASOPHILS % (AUTO) 0.5 % (0.0-2.0); EOSINOPHILS % (AUTO) 4.9 % (0.0-3.0); HEMATOCRIT 32.5 % (42.0-52.0); HEMOGLOBIN 10.3 G/DL (14.2-18.0); LYMPHOCYTES % (AUTO) 16.4 % (20.0-45.0); MEAN CORPUSCULAR VOLUME 85 FL (80-99); MONOCYTES % (AUTO) 6.3 % (1.0-10.0); PLATELET COUNT 264 K/UL (150-450); RED BLOOD COUNT 3.83 M/UL (4.70-6.10); RED CELL DISTRIBUTION WIDTH 16.2 % (11.6-14.8); WHITE BLOOD COUNT 6.5 K/UL (4.8-10.8)
[2016-12-25 08:35] LABS: ANION GAP 8 mmol/L (5-15); BLOOD UREA NITROGEN 18 mg/dL (7-18); CALCIUM 8.1 MG/DL (8.5-10.1); CARBON DIOXIDE 28 MMOL/L (21-32); CHLORIDE 106 MMOL/L (98-107); CREATININE 1.3 MG/DL (0.55-1.30); POTASSIUM 3.6 MMOL/L (3.5-5.1); SODIUM 142 MMOL/L (136-145)
[2016-12-25 09:00] VITALS: BP 122/80
[2016-12-25] MEDS: Atenolol 25mg tab ORAL SCH (09:17)
[2016-12-25] MEDS: Ascorbic Acid 500mg tab ORAL SCH (09:18)
[2016-12-25] MEDS: Heparin 5000 units/ml inj SUBQ SCH ×2 (09:33→21:34)
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
--- NOTE | 2016-12-25 10:32 | Diagnostic Imaging Report ---
APPROVED REPORT CPT Code: 68675 Present Symptoms Lower Extremity Pain: Bilateral Comments: Limited study due to amputation of the right leg below the knee. RIGHT LEG: Venous imaging reveals a patent deep venous system. There is no evidence of thrombus within the femoral and the popliteal segments. The greater saphenous vein is also within normal limits. Doppler indicates normal spontaneous flow within these segments. The right calf was not imaged due to amputation of the right leg below the knee. LEFT LEG: Venous imaging reveals a patent deep venous system. There is no evidence of thrombus within the femoral, popliteal or tibial segments. The greater saphenous vein is also within normal limits. Doppler indicates normal spontaneous flow within these segments.
--- NOTE | 2016-12-25 10:32 | Diagnostic Imaging Report ---
APPROVED REPORT CPT Code: 73412 Present Symptoms Lower Extremity Pain: Bilateral Comments: Limited study due to amputation of the right leg below the knee. RIGHT LEG: Venous imaging reveals a patent deep venous system. There is no evidence of thrombus within the femoral and the popliteal segments. The greater saphenous vein is also within normal limits. Doppler indicates normal spontaneous flow within these segments. The right calf was not imaged due to amputation of the right leg below the knee. LEFT LEG: Venous imaging reveals a patent deep venous system. There is no evidence of thrombus within the femoral, popliteal or tibial segments. The greater saphenous vein is also within normal limits. Doppler indicates normal spontaneous flow within these segments.
--- NOTE | 2016-12-25 10:32 | Diagnostic Imaging Report ---
APPROVED REPORT CPT Code: 87754 Present Symptoms Lower Extremity Pain: Bilateral Comments: Limited study due to amputation of the right leg below the knee. RIGHT LEG: Venous imaging reveals a patent deep venous system. There is no evidence of thrombus within the femoral and the popliteal segments. The greater saphenous vein is also within normal limits. Doppler indicates normal spontaneous flow within these segments. The right calf was not imaged due to amputation of the right leg below the knee. LEFT LEG: Venous imaging reveals a patent deep venous system. There is no evidence of thrombus within the femoral, popliteal or tibial segments. The greater saphenous vein is also within normal limits. Doppler indicates normal spontaneous flow within these segments.
--- NOTE | 2016-12-25 11:23 | Diagnostic Imaging Report ---
Indication: Acute renal failure Technique: Renal ultrasound Findings: Kidneys: The kidneys are normal in size and echogenicity. There is no hydronephrosis. No perinephric fluid is identified. There is an anechoic mass the upper pole the right kidney measuring approximately 3.9 cm in greatest dimension. This has through transmission. IVC: Not adequately imaged. Bladder: Collapsed by Gibson catheter. Impression: Right renal cysts. Bladder collapsed and cannot be evaluated. IVC not adequately visualized.
[2016-12-25 11:32] VITALS: BP 112/62
--- NOTE | 2016-12-25 13:57 | Plastic Surgery Progress Note ---
Plastic Surgery-Progress Note Subjective Additional Comments F/u on patient who is 4 weeks s/p right posterior thigh flap closure of ischial ulcer. He was admitted on 12/23/16 with drainage from distal medial thigh and WBC of 16 k. He has a WBC of 6k today. He underwent CT scan today. Results are pending. Objective Last 24 Hour Vital Signs Date Time Temp Pulse Resp B/P (MAP) Pulse Ox O2 Delivery O2 Flow Rate FiO2 12/25/16 11:37 81 12/25/16 11:32 96.1 81 20 112/62 96 Room Air 12/25/16 09:17 78 120/80 12/25/16 09:00 80 12/25/16 09:00 97.6 80 19 122/80 12/25/16 08:37 78 16 Room Air 12/25/16 08:36 95 Room Air 12/25/16 08:36 Room Air 12/25/16 04:00 74 12/25/16 00:00 72 12/25/16 00:00 98.1 80 19 120/80 97 Room Air 12/24/16 20:00 97.8 79 17 97/37 98 Room Air 12/24/16 19:43 97 Nasal Cannula 2.0 28 12/24/16 19:43 Nasal Cannula 2.0 28 12/24/16 19:42 80 16 Nasal Cannula 2.0 28 12/24/16 19:37 76 12/24/16 16:00 91 12/24/16 16:00 97.5 82 18 111/50 97 Room Air I&O Intake and Output 12/25/16 12/26/16 19:00 07:00 Intake Total 240 ml Output Total 550 ml Balance -310 ml Intake Oral 240 ml Output Urine Total 550 ml # Bowel Movements 1 Skin Exam: other - Flap is viable with no opening at the ischium. Original opening on medial distal thigh incision is full thicjness now with minimal undermining. No erythema, warmth, or crepitus. Laboratory Tests Test 12/25/16 07:45 White Blood Count 6.5 K/UL (4.8-10.8) Red Blood Count 3.83 M/UL (4.70-6.10) L Hemoglobin 10.3 G/DL (14.2-18.0) L Hematocrit 32.5 % (42.0-52.0) L Mean Corpuscular Volume 85 FL (80-99) Mean Corpuscular Hemoglobin 26.9 PG (27.0-31.0) L Mean Corpuscular Hemoglobin Concent 31.6 G/DL (32.0-36.0) L Red Cell Distribution Width 16.2 % (11.6-14.8) H Platelet Count 264 K/UL (150-450) Mean Platelet Volume 7.2 FL (6.5-10.1) Neutrophils (%) (Auto) 72.0 % (45.0-75.0) Lymphocytes (%) (Auto) 16.4 % (20.0-45.0) L Monocytes (%) (Auto) 6.3 % (1.0-10.0) Eosinophils (%) (Auto) 4.9 % (0.0-3.0) H Basophils (%) (Auto) 0.5 % (0.0-2.0) Sodium Level 142 MMOL/L (136-145) Potassium Level 3.6 MMOL/L (3.5-5.1) Chloride Level 106 MMOL/L (98-107) Carbon Dioxide Level 28 MMOL/L (21-32) Anion Gap 8 mmol/L (5-15) Blood Urea Nitrogen 18 mg/dL (7-18) Creatinine 1.3 MG/DL (0.55-1.30) Estimat Glomerular Filtration Rate mL/min (>60) Glucose Level 100 MG/DL (74-106) Calcium Level 8.1 MG/DL (8.5-10.1) L Plan Additional Comments Will need to review the CT scan to determine if there is a deeper fluid collection. Clinically it appears that the progression of the medial thigh opening allowed easier drainage of the fluid and if no deeper fluid collections then will treat this as a local wound with wound care and completion of the course of antibiotics. SOURAV PALMER Dec 25, 2016 13:57
[2016-12-25 15:38] VITALS: BP 112/57
--- NOTE | 2016-12-25 16:18 | Pulmonology Progress Note ---
Assessment/Plan Problems: (1) Sepsis (2) Amputation stump infection (3) Hypertension (4) Decubital ulcer Assessment/Plan wbc decreasing f/u cultures f/u CT scan, done today, results pending Subjective ROS Limited/Unobtainable: No Constitutional: Reports: no symptoms HEENT: Repors: no symptoms Allergies: Coded Allergies: VANCOMYCIN (Verified Allergy, Unknown, 12/22/16) SIMVASTATIN (Verified Adverse Reaction, Severe, MUSCLE WEAKNESS, 11/27/16) Objective Last 24 Hour Vital Signs Date Time Temp Pulse Resp B/P (MAP) Pulse Ox O2 Delivery O2 Flow Rate FiO2 12/25/16 15:38 96.5 75 20 112/57 95 Room Air 12/25/16 11:37 81 12/25/16 11:32 96.1 81 20 112/62 96 Room Air 12/25/16 09:17 78 120/80 12/25/16 09:00 80 12/25/16 09:00 97.6 80 19 122/80 12/25/16 08:37 78 16 Room Air 12/25/16 08:36 95 Room Air 12/25/16 08:36 Room Air 12/25/16 04:00 74 12/25/16 00:00 72 12/25/16 00:00 98.1 80 19 120/80 97 Room Air 12/24/16 20:00 97.8 79 17 97/37 98 Room Air 12/24/16 19:43 97 Nasal Cannula 2.0 28 12/24/16 19:43 Nasal Cannula 2.0 28 12/24/16 19:42 80 16 Nasal Cannula 2.0 28 12/24/16 19:37 76 Intake and Output 12/25/16 12/26/16 19:00 07:00 Intake Total 240 ml Output Total 550 ml Balance -310 ml Intake Oral 240 ml Output Urine Total 550 ml # Bowel Movements 1 General Appearance: WD/WN HEENT: normocephalic, anicteric Respiratory/Chest: chest wall non-tender, lungs clear Cardiovascular: normal peripheral pulses, normal rate Abdomen: normal bowel sounds, soft, non tender Genitourinary: normal external genitalia Skin: no rash Laboratory Tests 12/25/16 07:45: White Blood Count 6.5, Red Blood Count 3.83L, Hemoglobin 10.3L, Hematocrit 32.5L , Mean Corpuscular Volume 85, Mean Corpuscular Hemoglobin 26.9L, Mean Corpuscular Hemoglobin Concent 31.6L, Red Cell Distribution Width 16.2H, Platelet Count 264, Mean Platelet Volume 7.2, Neutrophils (%) (Auto) 72.0, Lymphocytes (%) (Auto) 16.4L, Monocytes (%) (Auto) 6.3, Eosinophils (%) (Auto) 4.9H, Basophils (%) (Auto) 0.5, Sodium Level 142, Potassium Level 3.6, Chloride Level 106, Carbon Dioxide Level 28, Anion Gap 8, Blood Urea Nitrogen 18, Creatinine 1.3, Estimat Glomerular Filtration Rate , Glucose Level 100, Calcium Level 8.1L Current Medications Medications (Trade) Dose Ordered Sig/Venkata Route PRN Reason Start Time Stop Time Status Last Admin Dose Admin Acetaminophen (Tylenol) 650 mg Q4H PRN ORAL Fever/Headache/Mild Pain 12/23/16 18:00 01/22/17 17:59 Acetaminophen/ Hydrocodone Bitart ([place] 5/325) 1 tab Q6H PRN ORAL Severe Pain (Pain Scale 7-10) 12/23/16 19:15 12/30/16 19:14 Albuterol/ Ipratropium (Albuterol/ Ipratropium) 3 ml Q4H PRN HHN Shortness of Breath 12/23/16 10:45 12/27/16 18:44 Ascorbic Acid (Vitamin C) 500 mg DAILY ORAL 12/23/16 09:15 01/22/17 08:59 12/25/16 09:18 Atenolol (Tenormin) 25 mg DAILY ORAL 12/23/16 09:15 01/22/17 08:59 12/25/16 09:17 Cefepime HCl 2 gm/ Sodium Chloride 110 ml @ 220 mls/hr Q24H IV 12/24/16 00:00 12/30/16 00:00 12/25/16 00:31 Daptomycin 350 mg/ Sodium Chloride 55 ml @ 100 mls/hr Q24H IV 12/23/16 18:30 12/30/16 18:29 Dextrose (Dextrose 50%) STAT PRN IV Hypoglycemia 12/23/16 18:45 01/21/17 18:44 Gabapentin (Neurontin) 300 mg BEDTIME ORAL 12/23/16 21:00 01/21/17 20:59 12/24/16 21:22 Heparin Sodium (Porcine) (Heparin 5000 units/ml) 5,000 units EVERY 12 HOURS SUBQ 12/23/16 09:15 01/21/17 20:59 12/25/16 09:33 Insulin Aspart (NovoLOG) BEFORE MEALS AND HS SUBQ 12/23/16 11:30 01/21/17 20:59 12/25/16 15:36 Morphine Sulfate (Morphine Sulfate) 4 mg Q4H PRN IVP For Breakthrough Pain 12/23/16 19:15 12/30/16 19:14 12/25/16 14:46 Nitroglycerin (Ntg) 0.4 mg Q5M PRN SL Prn Chest Pain 12/23/16 09:15 01/21/17 18:44 Ondansetron HCl (Zofran) 4 mg Q6H PRN IVP Nausea & Vomiting 12/23/16 12:45 01/21/17 18:44 Polyethylene Glycol (Miralax) 17 gm DAILYPRN PRN ORAL Constipation 12/23/16 18:45 01/21/17 18:44 Sodium Chloride 1,000 ml @ 75 mls/hr [id number] IV 12/23/16 16:00 01/22/17 15:59 12/25/16 06:44 Temazepam (Restoril) 15 mg HSPRN PRN ORAL Insomnia 12/23/16 18:45 12/29/16 18:44 RADHA HERRMANN Dec 25, 2016 16:18
--- NOTE | 2016-12-25 16:31 | Diagnostic Imaging Report ---
Indication: History of right ischial osteomyelitis. Right hip pain. Technique: Continuous helical transaxial imaging of the abdomen and pelvis was obtained from the lung bases to the pubic symphysis. No intravenous contrast was administered. Coronal 2-D reformats were also obtained. No IV contrast per requesting M.D. Total Dose length Product (DLP): [address] Dose Index Volume (CTDIvol): 0.25, 12.62, 6.42 mGy Comparison: Plain x-ray 12/22/16 Findings: The right hip joint is destroyed. The femoral head is eroded. There are multiple bone fragments and erosion of the acetabulum. As such the hip joint is superiorly migrated. The finding is chronic. There are buttressing osteophytes involving the deformed anterior inferior and superior iliac spines. There is deformity and sclerosis of the right ischial tuberosity and the posterior part of the inferior pubic ramus consistent with chronic osteomyelitis. 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 There is no abscess definitely identified. Gibson catheter is present. Arterial vascular calcifications are prominent. There are diverticula are incidentally noted within the colon. There is a long stent noted within the right SFA. Impression: Chronic deformity of the right hip which may be on the basis of previous trauma and/or infection. Marked erosion and destruction on both sides of the joint, now showing superimposed degenerative changes and pseudoarthroses. Chronic osteomyelitis of the right ischial tuberosity with adjacent grade 4 decubitus ulcer. Atherosclerotic vascular disease Diverticulosis of the colon Gibson catheter. SFA stent The CT scanner at [facility] is accredited by the [employer] and the scans are performed using dose optimization techniques as appropriate to a performed exam including Automatic Exposure control.
--- NOTE | 2016-12-25 16:31 | Diagnostic Imaging Report ---
Indication: History of right ischial osteomyelitis. Right hip pain. Technique: Continuous helical transaxial imaging of the abdomen and pelvis was obtained from the lung bases to the pubic symphysis. No intravenous contrast was administered. Coronal 2-D reformats were also obtained. No IV contrast per requesting M.D. Total Dose length Product (DLP): [address] Dose Index Volume (CTDIvol): 0.25, 12.62, 6.42 mGy Comparison: Plain x-ray 12/22/16 Findings: The right hip joint is destroyed. The femoral head is eroded. There are multiple bone fragments and erosion of the acetabulum. As such the hip joint is superiorly migrated. The finding is chronic. There are buttressing osteophytes involving the deformed anterior inferior and superior iliac spines. There is deformity and sclerosis of the right ischial tuberosity and the posterior part of the inferior pubic ramus consistent with chronic osteomyelitis. This is adjacent to a posterior linear tract of soft tissue attenuation extending to the skin pharmaceutical service representative of a grade 4 decubitus ulcer. There is no abscess definitely identified. Gibson catheter is present. Arterial vascular calcifications are prominent. There are diverticula are incidentally noted within the colon. There is a long stent noted within the right SFA. Impression: Chronic deformity of the right hip which may be on the basis of previous trauma and/or infection. Marked erosion and destruction on both sides of the joint, now showing superimposed degenerative changes and pseudoarthroses. Chronic osteomyelitis of the right ischial tuberosity with adjacent grade 4 decubitus ulcer. Atherosclerotic vascular disease Diverticulosis of the colon Gibson catheter. SFA stent The CT scanner at [facility] is accredited by the [employer] and the scans are performed using dose optimization techniques as appropriate to a performed exam including Automatic Exposure control.
[2016-12-25] MEDS: DAPTOmycin 350 MG in NS 55 ML IV SCH (18:03)
--- NOTE | 2016-12-25 18:14 | Cardiology Progress Note ---
Assessment/Plan Assessment/Plan chest pain sepsis Hypertension. Diabetes mellitus. Anemia. Functional quadriplegia. all trop neg ekg neg nothave any cp has his own caridologist may have had stress test recently will hav pt fu with epic ambulatory specialists to perform stress denny in future if needed Subjective Cardiovascular: Denies: chest pain, lightheadedness, palpitations Respiratory: Denies: shortness of breath Gastrointestinal/Abdominal: Denies: abdominal pain Genitourinary: Denies: burning Objective Last 24 Hour Vital Signs Date Time Temp Pulse Resp B/P (MAP) Pulse Ox O2 Delivery O2 Flow Rate FiO2 12/25/16 15:38 96.5 75 20 112/57 95 Room Air 12/25/16 11:37 81 12/25/16 11:32 96.1 81 20 112/62 96 Room Air 12/25/16 09:17 78 120/80 12/25/16 09:00 80 12/25/16 09:00 97.6 80 19 122/80 12/25/16 08:37 78 16 Room Air 12/25/16 08:36 95 Room Air 12/25/16 08:36 Room Air 12/25/16 04:00 74 12/25/16 00:00 72 12/25/16 00:00 98.1 80 19 120/80 97 Room Air 12/24/16 20:00 97.8 79 17 97/37 98 Room Air 12/24/16 19:43 97 Nasal Cannula 2.0 28 12/24/16 19:43 Nasal Cannula 2.0 28 12/24/16 19:42 80 16 Nasal Cannula 2.0 28 12/24/16 19:37 76 General Appearance: alert Neck: supple Cardiovascular: normal rate, regular rhythm Respiratory/Chest: lungs clear, normal breath sounds Abdomen: normal bowel sounds, non tender, soft Extremities: no swelling Intake and Output 12/25/16 12/26/16 19:00 07:00 Intake Total 480 ml Output Total 850 ml Balance -370 ml Intake Oral 480 ml Output Urine Total 850 ml # Bowel Movements 1 Laboratory Tests Test 12/25/16 07:45 White Blood Count 6.5 K/UL (4.8-10.8) Red Blood Count 3.83 M/UL (4.70-6.10) L Hemoglobin 10.3 G/DL (14.2-18.0) L Hematocrit 32.5 % (42.0-52.0) L Mean Corpuscular Volume 85 FL (80-99) Mean Corpuscular Hemoglobin 26.9 PG (27.0-31.0) L Mean Corpuscular Hemoglobin Concent 31.6 G/DL (32.0-36.0) L Red Cell Distribution Width 16.2 % (11.6-14.8) H Platelet Count 264 K/UL (150-450) Mean Platelet Volume 7.2 FL (6.5-10.1) Neutrophils (%) (Auto) 72.0 % (45.0-75.0) Lymphocytes (%) (Auto) 16.4 % (20.0-45.0) L Monocytes (%) (Auto) 6.3 % (1.0-10.0) Eosinophils (%) (Auto) 4.9 % (0.0-3.0) H Basophils (%) (Auto) 0.5 % (0.0-2.0) Sodium Level 142 MMOL/L (136-145) Potassium Level 3.6 MMOL/L (3.5-5.1) Chloride Level 106 MMOL/L (98-107) Carbon Dioxide Level 28 MMOL/L (21-32) Anion Gap 8 mmol/L (5-15) Blood Urea Nitrogen 18 mg/dL (7-18) Creatinine 1.3 MG/DL (0.55-1.30) Estimat Glomerular Filtration Rate mL/min (>60) Glucose Level 100 MG/DL (74-106) Calcium Level 8.1 MG/DL (8.5-10.1) CLARISSA JAMES Dec 25, 2016 18:14
--- NOTE | 2016-12-25 20:02 | Cardiology Report ---
APPROVED REPORT EXAM: Two-dimensional and M-mode echocardiogram with Doppler and color Doppler. INDICATION Chest Pain M-Mode DIMENSIONS IVSd1.3 (0.7-1.1cm)Left Atrium (MM)3.6 (1.6-4.0cm) LVDd4.6 (3.5-5.6cm)Aortic Root3.0 (2.0-3.7cm) PWd1.0 (0.7-1.1cm)Aortic Cusp Exc.2.2 (1.5-2.0cm) LVDs2.6 (2.5-4.0cm) PWs1.9 cm Normal left ventricular chamber size, systolic function and wall motion. Left ventricular ejection fraction estimated to be 55 %. Mild left ventricular hypertrophy. No evidence of pericardial effusion. All other cardiac chamber sizes are within normal limits. Mild focal aortic valve sclerosis with adequate cusp excursion. Mildly thickened mitral valve leaflets with normal excursion. Mild mitral annulus and aortic root calcification. Pulmonic valve not well visualized. Normal tricuspid valve structure. IVC dilated at 1.7 cm with physiologic collapse, estimated RAP is 10 mmHg. A color flow and spectral Doppler study was performed and revealed: No aortic regurgitation. No mitral regurgitation. Mitral diastolic velocities suggest reduced left ventricular relaxation c/w mild LV diastolic dysfunction (Grade I ). Mild tricuspid regurgitation. Tricuspid systolic velocities suggests peak right ventricular systolic pressure of 41 mmHg, consistent with mild pulmonary hypertension. No pulmonic regurgitation present.
[2016-12-25 20:22] VITALS: BP 115/58
[2016-12-25 23:42] VITALS: BP 110/56
[2016-12-26] VITALS: BP 130/54
[2016-12-26] MEDS ORDERED: Nitroglycerin Subl 0.4mg tab SL PRN ×2 (01:15→15:45)
[2016-12-26] MEDS ORDERED: Norco 5mg/325mg tab ORAL PRN ×2 (01:15→15:45)
[2016-12-26] MEDS: Morphine Sulfate 4mg/ml Inj IVP PRN ×4 (01:53→17:31)
[2016-12-26] MEDS ORDERED: Albuterol/Ipratropium 3ml neb HHN PRN ×2 (02:45→15:45)
[2016-12-26] MEDS: NovoLOG Insulin Flexpen SUBQ SCH ×4 (06:30→21:47)
[2016-12-26 08:46] VITALS: BP 130/57
[2016-12-26] MEDS ORDERED: Heparin 5000 units/ml inj SUBQ SCH (09:00)
[2016-12-26] MEDS ORDERED: Ascorbic Acid 500mg tab ORAL SCH (09:00)
[2016-12-26] MEDS ORDERED: Atenolol 25mg tab ORAL SCH (09:00)
[2016-12-26 12:00] VITALS: BP 120/59
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
[2016-12-26] MEDS ORDERED: INVANZ1 G1 IVPB (15:02)
[2016-12-26] MEDS ORDERED: ANCEF1 GM/50 ML IVPB ×2 (15:02→15:15)
[2016-12-26] MEDS ORDERED: INVANZ1 GM IVPB (15:16)
[2016-12-26] MEDS: Ertapenem 1 GM in NS 55 ML IVPB SCH (15:38)
--- NOTE | 2016-12-26 15:38 | Pulmonology Progress Note ---
Assessment/Plan Problems: (1) Osteomyelitis (2) Sepsis (3) Amputation stump infection (4) Hypertension (5) Decubital ulcer Assessment/Plan wbc decreasing f/u cultures f/u CT scan, reviewed, d/w dr Deng will need PICC line and 6 weeks of iv abx. Subjective ROS Limited/Unobtainable: No Constitutional: Reports: no symptoms HEENT: Repors: no symptoms Respiratory: Reports: no symptoms Allergies: Coded Allergies: VANCOMYCIN (Verified Allergy, Unknown, 12/22/16) SIMVASTATIN (Verified Adverse Reaction, Severe, MUSCLE WEAKNESS, 11/27/16) Objective Last 24 Hour Vital Signs Date Time Temp Pulse Resp B/P (MAP) Pulse Ox O2 Delivery O2 Flow Rate FiO2 12/26/16 12:00 97.9 71 16 120/59 95 Room Air 12/26/16 09:00 75 114/55 12/26/16 08:46 97.9 73 18 130/57 97 Room Air 12/26/16 07:28 94 Room Air 12/26/16 07:28 Room Air 12/26/16 07:28 69 16 Room Air 12/26/16 00:00 98.1 71 20 130/54 96 Room Air 12/25/16 23:42 98.0 88 20 110/56 97 Room Air 12/25/16 20:22 97.7 71 20 115/58 97 Room Air 12/25/16 19:30 72 16 Room Air 12/25/16 19:30 96 Room Air 12/25/16 19:30 Room Air 12/25/16 16:00 84 12/25/16 15:38 96.5 75 20 112/57 95 Room Air General Appearance: WD/WN HEENT: normocephalic, atraumatic Respiratory/Chest: chest wall non-tender, lungs clear Cardiovascular: normal peripheral pulses, normal rate Abdomen: normal bowel sounds, soft, non tender Genitourinary: normal external genitalia Extremities: no clubbing Skin: no rash, no lesions Laboratory Tests 12/26/16 14:45: Erythrocyte Sedimentation Rate [Pending], C-Reactive Protein, Quantitative 11.5H Current Medications Medications (Trade) Dose Ordered Sig/Venkata Route PRN Reason Start Time Stop Time Status Last Admin Dose Admin Acetaminophen (Tylenol) 650 mg Q4H PRN ORAL Fever/Headache/Mild Pain 12/26/16 02:00 01/22/17 17:59 Acetaminophen/ Hydrocodone Bitart ([place] 5/325) 1 tab Q6H PRN ORAL Severe Pain (Pain Scale 7-10) 12/26/16 01:15 12/30/16 19:14 Albuterol/ Ipratropium (Albuterol/ Ipratropium) 3 ml Q4H PRN HHN Shortness of Breath 12/26/16 02:45 12/27/16 18:44 Ascorbic Acid (Vitamin C) 500 mg DAILY ORAL 12/26/16 09:00 01/22/17 08:59 12/26/16 09:16 Atenolol (Tenormin) 25 mg DAILY ORAL 12/26/16 09:00 01/22/17 08:59 Cefazolin Sodium 1 gm/Dextrose 55 ml @ 110 mls/hr Q8HR IVPB 12/26/16 22:00 01/02/17 21:59 Chlorhexidine Gluconate (Jane-Hex 2%) 1 applic DAILY@2000 TOPIC 12/26/16 20:00 01/25/17 19:59 Dextrose (Dextrose 50%) STAT PRN IV Hypoglycemia 12/26/16 18:45 01/21/17 18:44 Ertapenem 1 gm/ Sodium Chloride 55 ml @ 110 mls/hr Q24H IVPB 12/26/16 15:00 12/31/16 14:59 Gabapentin (Neurontin) 300 mg BEDTIME ORAL 12/26/16 21:00 01/21/17 20:59 Heparin Sodium (Porcine) (Heparin 5000 units/ml) 5,000 units EVERY 12 HOURS SUBQ 12/26/16 09:00 01/21/17 20:59 12/26/16 09:26 Heparin Sodium/ Sodium Chloride (Heparin 2000 units/Ns 1000ml premix) 2,000 unit ONCE ONCE INJ 12/26/16 18:00 12/26/16 18:01 Insulin Aspart (NovoLOG) BEFORE MEALS AND HS SUBQ 12/26/16 06:30 01/21/17 20:59 Lidocaine HCl (Xylocaine 1% 30ml) 30 ml ONCE ONCE INJ 12/26/16 18:00 12/26/16 18:01 Morphine Sulfate (Morphine Sulfate) 4 mg Q4H PRN IVP For Breakthrough Pain 12/26/16 03:15 12/30/16 19:14 12/26/16 13:42 Nitroglycerin (Ntg) 0.4 mg Q5M PRN SL Prn Chest Pain 12/26/16 01:15 01/21/17 18:44 Ondansetron HCl (Zofran) 4 mg Q6H PRN IVP Nausea & Vomiting 12/26/16 06:45 01/21/17 18:44 Polyethylene Glycol (Miralax) 17 gm DAILYPRN PRN ORAL Constipation 12/26/16 18:45 01/21/17 18:44 Sodium Chloride 1,000 ml @ 75 mls/hr [id number] IV 12/26/16 01:15 01/22/17 15:59 12/26/16 13:42 Temazepam (Restoril) 15 mg HSPRN PRN ORAL Insomnia 12/26/16 18:45 12/29/16 18:44 RADHA HERRMANN Dec 26, 2016 15:38
[2016-12-26] MEDS ORDERED: Miralax 17gm pkt ORAL PRN ×2 (15:45→18:45)
[2016-12-26] MEDS ORDERED: Lidocaine 1% Plain 30 ml INJ ONE (18:00)
[2016-12-26] MEDS ORDERED: Heparin 2000 units/Ns 1000ml INJ ONE (18:00)
[2016-12-26] MEDS ORDERED: DAPTOmycin 350 MG in NS 55 ML IV SCH (18:30)
[2016-12-26 20:00] VITALS: BP 119/56
[2016-12-26] MEDS: Dyna-Hex 2% Top Sol 2oz TOPIC SCH (20:00)
[2016-12-26] MEDS: ceFAZolin sod 1 GM in D5W 55 ML IVPB SCH (21:45)
[2016-12-26] MEDS: Heparin 5000 units/ml inj SUBQ SCH (21:46)
[2016-12-27] VITALS: BP 118/49
[2016-12-27] MEDS ORDERED: Cefepime HCl 2 GM in NS 110 ML IV SCH ×2
[2016-12-27 04:00] VITALS: BP 116/61
[2016-12-27] MEDS: ceFAZolin sod 1 GM in D5W 55 ML IVPB SCH ×3 (06:07→20:41)
[2016-12-27] MEDS: NovoLOG Insulin Flexpen SUBQ SCH ×4 (06:21→20:41)
[2016-12-27] MEDS: Morphine Sulfate 4mg/ml Inj IVP PRN ×3 (07:46→19:26)
[2016-12-27 07:57] VITALS: BP 130/64
[2016-12-27] MEDS: Atenolol 25mg tab ORAL SCH (09:00)
[2016-12-27] MEDS: Ascorbic Acid 500mg tab ORAL SCH (10:01)
[2016-12-27] MEDS: Heparin 5000 units/ml inj SUBQ SCH ×2 (10:08→20:40)
[2016-12-27 11:29] VITALS: BP 132/56
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
[2016-12-27 15:43] VITALS: BP 143/78
[2016-12-27] MEDS: Ertapenem 1 GM in NS 55 ML IVPB SCH (16:17)
--- NOTE | 2016-12-27 16:24 | Diagnostic Imaging Report ---
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 The right upper extremity was prepped with alcohol. All elements of maximal sterile barrier technique were followed including usage of a cap, mask, sterile gown, sterile gloves, hand hygiene and a large sterile sheet. Sonographic evaluation of the upper extremity was performed demonstrating a patent and compressible brachial vein. Access was obtained under real-time ultrasound guidance (with utilization of sterile gel and sterile probe cover) and digital image was saved and archived. An .018 wire was introduced. Needle exchanged for a 5 Lebanese peel-away sheath. Measurements were obtained. A 5 [place] dual-lumen Power PICC line catheter was cut to 43 cm and introduced over the wire. Peel-away sheath and wire were removed.Catheter was secured to the skin using 2-0 Prolene suture. Both ports aspirate and flush easily. Fluoroscopic Images show distal tip in the superior vena cava. Total fluoroscopic time 0.4 minutes. Single fluoroscopic image obtained. Impression: Successful placement of an upper extremity PICC line catheter
--- NOTE | 2016-12-27 17:52 | Pulmonology Progress Note ---
Assessment/Plan Problems: (1) Osteomyelitis (2) Sepsis (3) Amputation stump infection (4) Hypertension (5) Decubital ulcer Assessment/Plan wbc decreasing f/u cultures f/u CT scan, reviewed, d/w dr Deng PICC placed, dc planning in process Subjective ROS Limited/Unobtainable: No Constitutional: Reports: no symptoms HEENT: Repors: no symptoms Respiratory: Reports: no symptoms Allergies: Coded Allergies: VANCOMYCIN (Verified Allergy, Unknown, 12/22/16) SIMVASTATIN (Verified Adverse Reaction, Severe, MUSCLE WEAKNESS, 11/27/16) Objective Last 24 Hour Vital Signs Date Time Temp Pulse Resp B/P (MAP) Pulse Ox O2 Delivery O2 Flow Rate FiO2 12/27/16 15:43 97.8 80 20 143/78 96 Room Air 12/27/16 11:29 97.7 73 18 132/56 96 Room Air 12/27/16 09:00 79 107/49 12/27/16 07:57 97.8 78 19 130/64 95 Room Air 12/27/16 07:16 75 16 Room Air 21 12/27/16 07:16 95 Room Air 21 12/27/16 07:16 Room Air 21 12/27/16 04:00 98.1 76 18 116/61 94 Room Air 12/27/16 00:00 98.1 74 18 118/49 96 Room Air 12/26/16 20:00 97.7 81 18 119/56 97 Room Air General Appearance: cachetic HEENT: normocephalic, atraumatic Respiratory/Chest: chest wall non-tender, normal breath sounds Cardiovascular: normal peripheral pulses, normal rate Abdomen: normal bowel sounds, soft, non tender Genitourinary: normal external genitalia Extremities: no cyanosis Neurologic/Psychiatric: crm functional analyst II-XII grossly normal Current Medications Medications (Trade) Dose Ordered Sig/Venkata Route PRN Reason Start Time Stop Time Status Last Admin Dose Admin Acetaminophen (Tylenol) 650 mg Q4H PRN ORAL Mild Pain (Pain Scale 1-3) 12/26/16 15:45 01/25/17 15:44 Acetaminophen/ Hydrocodone Bitart ([place] 5/325) 1 tab Q6H PRN ORAL Severe Pain (Pain Scale 7-10) 12/26/16 15:45 01/02/17 15:44 Albuterol/ Ipratropium (Albuterol/ Ipratropium) 3 ml Q4H PRN HHN Shortness of Breath 12/26/16 15:45 12/31/16 15:44 Ascorbic Acid (Vitamin C) 500 mg DAILY ORAL 12/27/16 09:00 01/26/17 08:59 12/27/16 10:01 Atenolol (Tenormin) 25 mg DAILY ORAL 12/27/16 09:00 01/26/17 08:59 Cefazolin Sodium 1 gm/Dextrose 55 ml @ 110 mls/hr Q8HR IVPB 12/26/16 22:00 01/02/17 21:59 12/27/16 15:12 Chlorhexidine Gluconate (Jane-Hex 2%) 1 applic DAILY@2000 TOPIC 12/26/16 20:00 01/25/17 19:59 Dextrose (Dextrose 50%) STAT PRN IV Hypoglycemia 12/26/16 15:45 01/25/17 15:44 Ertapenem 1 gm/ Sodium Chloride 55 ml @ 110 mls/hr Q24H IVPB 12/26/16 15:00 12/31/16 14:59 12/27/16 16:17 Gabapentin (Neurontin) 300 mg QHS ORAL 12/26/16 21:00 01/25/17 20:59 12/26/16 21:45 Heparin Sodium (Porcine) (Heparin 5000 units/ml) 5,000 units EVERY 12 HOURS SUBQ 12/26/16 21:00 01/25/17 20:59 12/27/16 10:08 Insulin Aspart (NovoLOG) BEFORE MEALS AND HS SUBQ 12/26/16 16:30 01/25/17 16:29 12/27/16 17:10 Morphine Sulfate (Morphine Sulfate) 4 mg Q4H PRN IVP Moderate Breakthru Pain (5-7) 12/26/16 15:45 01/02/17 15:44 12/27/16 15:11 Nitroglycerin (Ntg) 0.4 mg Q5M PRN SL Prn Chest Pain 12/26/16 15:45 01/25/17 15:44 Ondansetron HCl (Zofran) 4 mg Q6H PRN IVP Nausea & Vomiting 12/26/16 15:45 01/25/17 15:44 Polyethylene Glycol (Miralax) 17 gm DAILYPRN PRN ORAL Constipation 12/26/16 15:45 01/25/17 15:44 Sodium Chloride 1,000 ml @ 75 mls/hr [id number] IVLG 12/26/16 17:00 01/25/17 16:59 Temazepam (Restoril) 15 mg HSPRN PRN ORAL Insomnia 12/26/16 15:45 01/02/17 15:44 RADHA HERRMANN Dec 27, 2016 17:52
--- NOTE | 2016-12-27 17:52 | Pulmonology Progress Note ---
Assessment/Plan Problems: (1) Osteomyelitis (2) Sepsis (3) Amputation stump infection (4) Hypertension (5) Decubital ulcer Assessment/Plan wbc decreasing f/u cultures f/u CT scan, reviewed, d/w dr Deng PICC placed, dc planning in process Subjective ROS Limited/Unobtainable: No Constitutional: Reports: no symptoms HEENT: Repors: no symptoms Respiratory: Reports: no symptoms Allergies: Coded Allergies: VANCOMYCIN (Verified Allergy, Unknown, 12/22/16) SIMVASTATIN (Verified Adverse Reaction, Severe, MUSCLE WEAKNESS, 11/27/16) Objective Last 24 Hour Vital Signs Date Time Temp Pulse Resp B/P (MAP) Pulse Ox O2 Delivery O2 Flow Rate FiO2 12/27/16 15:43 97.8 80 20 143/78 96 Room Air 12/27/16 11:29 97.7 73 18 132/56 96 Room Air 12/27/16 09:00 79 107/49 12/27/16 07:57 97.8 78 19 130/64 95 Room Air 12/27/16 07:16 75 16 Room Air 21 12/27/16 07:16 95 Room Air 21 12/27/16 07:16 Room Air 21 12/27/16 04:00 98.1 76 18 116/61 94 Room Air 12/27/16 00:00 98.1 74 18 118/49 96 Room Air 12/26/16 20:00 97.7 81 18 119/56 97 Room Air General Appearance: cachetic HEENT: normocephalic, atraumatic Respiratory/Chest: chest wall non-tender, normal breath sounds Cardiovascular: normal peripheral pulses, normal rate Abdomen: normal bowel sounds, soft, non tender Genitourinary: normal external genitalia Extremities: no cyanosis 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 Current Medications Medications (Trade) Dose Ordered Sig/Venkata Route PRN Reason Start Time Stop Time Status Last Admin Dose Admin Acetaminophen (Tylenol) 650 mg Q4H PRN ORAL Mild Pain (Pain Scale 1-3) 12/26/16 15:45 01/25/17 15:44 Acetaminophen/ Hydrocodone Bitart ([place] 5/325) 1 tab Q6H PRN ORAL Severe Pain (Pain Scale 7-10) 12/26/16 15:45 01/02/17 15:44 Albuterol/ Ipratropium (Albuterol/ Ipratropium) 3 ml Q4H PRN HHN Shortness of Breath 12/26/16 15:45 12/31/16 15:44 Ascorbic Acid (Vitamin C) 500 mg DAILY ORAL 12/27/16 09:00 01/26/17 08:59 12/27/16 10:01 Atenolol (Tenormin) 25 mg DAILY ORAL 12/27/16 09:00 01/26/17 08:59 Cefazolin Sodium 1 gm/Dextrose 55 ml @ 110 mls/hr Q8HR IVPB 12/26/16 22:00 01/02/17 21:59 12/27/16 15:12 Chlorhexidine Gluconate (Jane-Hex 2%) 1 applic DAILY@2000 TOPIC 12/26/16 20:00 01/25/17 19:59 Dextrose (Dextrose 50%) STAT PRN IV Hypoglycemia 12/26/16 15:45 01/25/17 15:44 Ertapenem 1 gm/ Sodium Chloride 55 ml @ 110 mls/hr Q24H IVPB 12/26/16 15:00 12/31/16 14:59 12/27/16 16:17 Gabapentin (Neurontin) 300 mg QHS ORAL 12/26/16 21:00 01/25/17 20:59 12/26/16 21:45 Heparin Sodium (Porcine) (Heparin 5000 units/ml) 5,000 units EVERY 12 HOURS SUBQ 12/26/16 21:00 01/25/17 20:59 12/27/16 10:08 Insulin Aspart (NovoLOG) BEFORE MEALS AND HS SUBQ 12/26/16 16:30 01/25/17 16:29 12/27/16 17:10 Morphine Sulfate (Morphine Sulfate) 4 mg Q4H PRN IVP Moderate Breakthru Pain (5-7) 12/26/16 15:45 01/02/17 15:44 12/27/16 15:11 Nitroglycerin (Ntg) 0.4 mg Q5M PRN SL Prn Chest Pain 12/26/16 15:45 01/25/17 15:44 Ondansetron HCl (Zofran) 4 mg Q6H PRN IVP Nausea & Vomiting 12/26/16 15:45 01/25/17 15:44 Polyethylene Glycol (Miralax) 17 gm DAILYPRN PRN ORAL Constipation 12/26/16 15:45 01/25/17 15:44 Sodium Chloride 1,000 ml @ 75 mls/hr [id number] IVLG 12/26/16 17:00 01/25/17 16:59 Temazepam (Restoril) 15 mg HSPRN PRN ORAL Insomnia 12/26/16 15:45 01/02/17 15:44 RADHA HERRMANN Dec 27, 2016 17:52
--- NOTE | 2016-12-27 17:52 | Pulmonology Progress Note ---
Assessment/Plan Problems: (1) Osteomyelitis (2) Sepsis (3) Amputation stump infection (4) Hypertension (5) Decubital ulcer Assessment/Plan wbc decreasing f/u cultures f/u CT scan, reviewed, d/w dr Deng PICC placed, dc planning in process Subjective ROS Limited/Unobtainable: No Constitutional: Reports: no symptoms HEENT: Repors: no symptoms Respiratory: Reports: no symptoms Allergies: Coded Allergies: VANCOMYCIN (Verified Allergy, Unknown, 12/22/16) SIMVASTATIN (Verified Adverse Reaction, Severe, MUSCLE WEAKNESS, 11/27/16) Objective Last 24 Hour Vital Signs Date Time Temp Pulse Resp B/P (MAP) Pulse Ox O2 Delivery O2 Flow Rate FiO2 12/27/16 15:43 97.8 80 20 143/78 96 Room Air 12/27/16 11:29 97.7 73 18 132/56 96 Room Air 12/27/16 09:00 79 107/49 12/27/16 07:57 97.8 78 19 130/64 95 Room Air 12/27/16 07:16 75 16 Room Air 21 12/27/16 07:16 95 Room Air 21 12/27/16 07:16 Room Air 21 12/27/16 04:00 98.1 76 18 116/61 94 Room Air 12/27/16 00:00 98.1 74 18 118/49 96 Room Air 12/26/16 20:00 97.7 81 18 119/56 97 Room Air General Appearance: cachetic HEENT: normocephalic, atraumatic Respiratory/Chest: chest wall non-tender, normal breath sounds Cardiovascular: normal peripheral pulses, normal rate Abdomen: normal bowel sounds, soft, non tender Genitourinary: normal external genitalia Extremities: no cyanosis 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 normal Current Medications Medications (Trade) Dose Ordered Sig/Venkata Route PRN Reason Start Time Stop Time Status Last Admin Dose Admin Acetaminophen (Tylenol) 650 mg Q4H PRN ORAL Mild Pain (Pain Scale 1-3) 12/26/16 15:45 01/25/17 15:44 Acetaminophen/ Hydrocodone Bitart ([place] 5/325) 1 tab Q6H PRN ORAL Severe Pain (Pain Scale 7-10) 12/26/16 15:45 01/02/17 15:44 Albuterol/ Ipratropium (Albuterol/ Ipratropium) 3 ml Q4H PRN HHN Shortness of Breath 12/26/16 15:45 12/31/16 15:44 Ascorbic Acid (Vitamin C) 500 mg DAILY ORAL 12/27/16 09:00 01/26/17 08:59 12/27/16 10:01 Atenolol (Tenormin) 25 mg DAILY ORAL 12/27/16 09:00 01/26/17 08:59 Cefazolin Sodium 1 gm/Dextrose 55 ml @ 110 mls/hr Q8HR IVPB 12/26/16 22:00 01/02/17 21:59 12/27/16 15:12 Chlorhexidine Gluconate (Jane-Hex 2%) 1 applic DAILY@2000 TOPIC 12/26/16 20:00 01/25/17 19:59 Dextrose (Dextrose 50%) STAT PRN IV Hypoglycemia 12/26/16 15:45 01/25/17 15:44 Ertapenem 1 gm/ Sodium Chloride 55 ml @ 110 mls/hr Q24H IVPB 12/26/16 15:00 12/31/16 14:59 12/27/16 16:17 Gabapentin (Neurontin) 300 mg QHS ORAL 12/26/16 21:00 01/25/17 20:59 12/26/16 21:45 Heparin Sodium (Porcine) (Heparin 5000 units/ml) 5,000 units EVERY 12 HOURS SUBQ 12/26/16 21:00 01/25/17 20:59 12/27/16 10:08 Insulin Aspart (NovoLOG) BEFORE MEALS AND HS SUBQ 12/26/16 16:30 01/25/17 16:29 12/27/16 17:10 Morphine Sulfate (Morphine Sulfate) 4 mg Q4H PRN IVP Moderate Breakthru Pain (5-7) 12/26/16 15:45 01/02/17 15:44 12/27/16 15:11 Nitroglycerin (Ntg) 0.4 mg Q5M PRN SL Prn Chest Pain 12/26/16 15:45 01/25/17 15:44 Ondansetron HCl (Zofran) 4 mg Q6H PRN IVP Nausea & Vomiting 12/26/16 15:45 01/25/17 15:44 Polyethylene Glycol (Miralax) 17 gm DAILYPRN PRN ORAL Constipation 12/26/16 15:45 01/25/17 15:44 Sodium Chloride 1,000 ml @ 75 mls/hr [id number] IVLG 12/26/16 17:00 01/25/17 16:59 Temazepam (Restoril) 15 mg HSPRN PRN ORAL Insomnia 12/26/16 15:45 01/02/17 15:44 RADHA HERRMANN Dec 27, 2016 17:52
[2016-12-27 20:00] VITALS: BP 134/72
[2016-12-27] MEDS: Dyna-Hex 2% Top Sol 2oz TOPIC SCH (20:39)
[2016-12-28] VITALS: BP 132/67
[2016-12-28] MEDS: Morphine Sulfate 4mg/ml Inj IVP PRN ×3 (00:35→14:28)
[2016-12-28 03:34] VITALS: BP 115/59
[2016-12-28] MEDS: NovoLOG Insulin Flexpen SUBQ SCH ×3 (05:42→17:06)
[2016-12-28] MEDS: ceFAZolin sod 1 GM in D5W 55 ML IVPB SCH ×2 (05:42→14:15)
[2016-12-28 08:00] VITALS: BP 111/59
[2016-12-28] MEDS: Ascorbic Acid 500mg tab ORAL SCH (08:48)
[2016-12-28] MEDS: Heparin 5000 units/ml inj SUBQ SCH (08:50)
[2016-12-28] MEDS: Atenolol 25mg tab ORAL SCH (09:00)
[2016-12-28 12:00] VITALS: BP 116/61
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
[2016-12-28] MEDS: Ertapenem 1 GM in NS 55 ML IVPB SCH (15:20)
[2016-12-28 16:00] VITALS: BP_SYST 134; BP_SYST 136; BP_DIAS 56; BP_DIAS 60
[2016-12-28] MEDS ORDERED: NS 275ml ONE (17:04)
--- NOTE | 2016-12-28 19:04 | Pulmonology Progress Note ---
Assessment/Plan Problems: (1) Osteomyelitis (2) Sepsis (3) Amputation stump infection (4) Hypertension (5) Decubital ulcer Assessment/Plan wbc decreasing f/u cultures dc planning to home with IV abx f/u appointment with Dr. Pak scheduled Subjective ROS Limited/Unobtainable: No Constitutional: Reports: no symptoms HEENT: Repors: no symptoms Allergies: Coded Allergies: VANCOMYCIN (Verified Allergy, Unknown, 12/22/16) SIMVASTATIN (Verified Adverse Reaction, Severe, MUSCLE WEAKNESS, 11/27/16) Objective Last 24 Hour Vital Signs Date Time Temp Pulse Resp B/P (MAP) Pulse Ox O2 Delivery O2 Flow Rate FiO2 12/28/16 16:00 97.2 63 22 134/60 100 Room Air 12/28/16 14:58 97.2 12/28/16 12:00 97.2 60 20 116/61 97 Room Air 12/28/16 09:00 69 111/59 12/28/16 08:01 69 18 Room Air 12/28/16 08:01 96 Room Air 12/28/16 08:01 Room Air 21 12/28/16 08:00 97.5 64 20 111/59 100 Room Air 12/28/16 03:34 97.5 62 20 115/59 97 Room Air 12/28/16 00:00 97.9 66 19 132/67 98 Room Air 12/27/16 20:07 95 Room Air 12/27/16 20:07 80 18 Room Air 12/27/16 20:07 Room Air 12/27/16 20:00 98.1 74 19 134/72 98 Room Air Intake and Output 12/28/16 12/29/16 19:00 07:00 Intake Total 345 ml Output Total 1450 ml Balance -1105 ml Intake Oral 120 ml IV Total 225 ml Output Urine Total 1450 ml General Appearance: WD/WN HEENT: normocephalic, atraumatic Respiratory/Chest: chest wall non-tender, lungs clear Cardiovascular: normal peripheral pulses, normal rate Abdomen: normal bowel sounds, non distended Extremities: no clubbing Neurologic/Psychiatric: abnormal gait RADHA HERRMANN Dec 28, 2016 19:04
--- NOTE | 2016-12-29 16:11 | Discharge Summary ---
Discharge Summary Hospital Course Date of Admission Dec 22, 2016 at 15:28 Date of Discharge Dec 28, 2016 at 17:39 Admitting Diagnosis cellulitis/ wound infection KIMBERLEE Jeff Nava is a 76 year old male who was admitted on Dec 22, 2016 at 15:28 for Cellulitis, Wound Infection Hospital Course [id number] Discharge Discharge Disposition Patient was discharged to Home with Home Health(06) Discharge Diagnoses: Reema Lopez NP Dec 29, 2016 16:11
--- NOTE | 2016-12-29 16:11 | Discharge Summary ---
Discharge Summary Hospital Course Date of Admission Dec 22, 2016 at 15:28 Date of Discharge Dec 28, 2016 at 17:39 Admitting Diagnosis cellulitis/ wound infection KIMBERLEE Jeff Nava is a 76 year old male who was admitted on Dec 22, 2016 at 15:28 for Cellulitis, Wound Infection Hospital Course [id number] Discharge Discharge Disposition Patient was discharged to Home with Home Health(06) Discharge Diagnoses: Reema Lopez NP Dec 29, 2016 16:11
--- NOTE | 2016-12-29 16:11 | Discharge Summary ---
Discharge Summary Hospital Course Date of Admission Dec 22, 2016 at 15:28 Date of Discharge Dec 28, 2016 at 17:39 Admitting Diagnosis cellulitis/ wound infection KIMBERLEE Jeff Nava is a 76 year old male who was admitted on Dec 22, 2016 at 15:28 for Cellulitis, Wound Infection Hospital Course [id number] Discharge Discharge Disposition Patient was discharged to Home with Home Health(06) Discharge Diagnoses: Reema Lopez NP Dec 29, 2016 16:11
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
== END 2016-12-28 17:39 | disposition home health service (06) | DRG 871 ==
LOC: EDBD 14:49 → ENRESERV 15:20 → EMR 15:20 → 4E 15:28 → EDBEDREQ 15:53 → 2E 12-23 09:00 → 4E 12-26 00:07
PROC: 02HV33Z Insertion of Infusion Device into Superior Vena Cava, Percutaneous Approach (ICD-10-PCS; principal; 2016-12-27)
DX: A41.9 Sepsis, unspecified organism (principal); A48.0 Gas gangrene; N17.9 Acute kidney failure, unspecified; L89.214 Pressure ulcer of right hip, stage 4; E46 Unspecified protein-calorie malnutrition; N39.0 Urinary tract infection, site not specified; G82.20 Paraplegia, unspecified; I27.20 Pulmonary hypertension, unspecified; T87.44 Infection of amputation stump, left lower extremity; E11.9 Type 2 diabetes mellitus without complications; B96.20 Unspecified Escherichia coli [E. coli] as the cause of diseases classified elsewhere; M86.18 Other acute osteomyelitis, other site; E87.1 Hypo-osmolality and hyponatremia; L89.899 Pressure ulcer of other site, unspecified stage; D64.9 Anemia, unspecified; I73.9 Peripheral vascular disease, unspecified; I12.9 Hypertensive chronic kidney disease with stage 1 through stage 4 chronic kidney disease, or unspecified chronic kidney disease; N18.9 Chronic kidney disease, unspecified; E87.6 Hypokalemia; Z68.23 Body mass index [BMI] 23.0-23.9, adult; B96.5 Pseudomonas (aeruginosa) (mallei) (pseudomallei) as the cause of diseases classified elsewhere; Z88.1 Allergy status to other antibiotic agents; Z88.8 Allergy status to other drugs, medicaments and biological substances; R07.9 Chest pain, unspecified; Y83.9 Surgical procedure, unspecified as the cause of abnormal reaction of the patient, or of later complication, without mention of misadventure at the time of the procedure
CPT/HCPCS: 36415; 36569; 71010; 76775; 76937; 80048; 80053; 80061; 80202; 81003; 82550; 82962; 83036; 83605; 83735; 83880; 84484; 85007; 85025; 85379; 85610; 85651; 85730; 86140; 86850; 86900; 86901; 87040; 87070; 87086; 87181; 87205; 93005; 93306; 93970; 94664; 94760; 97802; 99285; J1815

== ENCOUNTER 2017-01-01 10:20 | Outpatient (RCR) | payer MEDICARE, OTHER ==
[~2017-01-01 10:20] MED LIST changes: +ANCEF1 GM/50 ML IVPB; +INVANZ1 G1 IVPB; +INVANZ1 GM IVPB; +MULTIVITAMINS1 EAC2 ORAL; +MULTIVITAMINS1 EAC8 ORAL; +VITAMIN C500 M1 ORAL
== END 2017-01-18 | disposition home or self-care (01) ==
LOC: WCC 10:20
DX: L98.492 Non-pressure chronic ulcer of skin of other sites with fat layer exposed (principal); T81.31XS Disruption of external operation (surgical) wound, not elsewhere classified, sequela; X58.XXXS Exposure to other specified factors, sequela; E11.9 Type 2 diabetes mellitus without complications; I10 Essential (primary) hypertension; M19.90 Unspecified osteoarthritis, unspecified site
CPT/HCPCS: 11042; G0463